=== PATIENT | male | born 1970 | race Caucasian/White ===

== ENCOUNTER 2019-12-21 22:01 | Inpatient (IN) | payer MEDICARE, MEDICAID ==
[~2019-12-21] VITALS: Ht 182.9 cm; Wt 96.4 kg
[~2019-12-21 22:01] MED LIST: BUSP5TAB20 PO; DIVA-78 PO; LORA-1000 PO; QUET300T2 PO; RANI150T7 PO
[2019-12-21] MEDS ORDERED: HYDR-3831 PO (23:04)
[2019-12-21] MEDS ORDERED: BENZ1TAB10 PO (23:04)
[2019-12-21] MEDS ORDERED: SERT50TA12 PO (23:04)
[2019-12-21] MEDS ORDERED: LORazepam 1 MG TABLET PO ONE (23:45)
[2019-12-22] MEDS ORDERED: ZOLPIDEM TARTRATE 10 MG TABLET PO PRN (01:30)
[2019-12-22 04:05] VITALS: BP 158/94
[2019-12-22] MEDS ORDERED: PNEUMOCOCCAL VACCINE POLYVALENT 0.5 ML VIAL [PPSV23] IM ONE (04:45)
[2019-12-22 08:00] VITALS: BP 140/87
[2019-12-22] MEDS: LORazepam 2 MG TABLET PO PRN (09:32)
[2019-12-22] MEDS: HALOPERIDOL 5 MG TABLET PO PRN (09:34)
[2019-12-22] MEDS ORDERED: ALBUTEROL SULFATE HFA 90 MCG/PUFF 8 GM INHALER IH PRN (12:45)
[2019-12-22 16:40] VITALS: BP 111/79
[2019-12-22] MEDS: BENZTROPINE MESYLATE 1 MG TABLET PO SCH (16:49)
[2019-12-22] MEDS: QUEtiapine FUMARATE 200 MG ER TABLET PO SCH (20:33)
[2019-12-22] MEDS: DIVALPROEX SODIUM 500 MG ER TABLET PO SCH (20:34)
[2019-12-23 06:38] LABS: BASOPHILS % (AUTO) 0.2 % (0.0-2.0); EOSINOPHILS % (AUTO) 2.3 % (1.0-6.0); HEMOGLOBIN 14.2 g/dL (13.5-17.5); LYMPHOCYTES # (AUTO) 1.2 K/uL (1.0-4.8); LYMPHOCYTES % (AUTO) 29.8 % (22.0-44.0); MEAN CORPUSCULAR HEMOGLOBIN 30.3 pg (26.0-34.0); MEAN CORPUSCULAR HGB CONC 33.8 G/dL (31.0-37.0); MEAN CORPUSCULAR VOLUME 90 fL (80-100); MONOCYTES # (AUTO) 0.6 K/uL (0.1-1.0); MONOCYTES % (AUTO) 14.6 % (2.0-9.0); NEUTROPHILS # (AUTO) 2.2 K/uL (1.8-7.7); NEUTROPHILS % (AUTO) 53.1 % (40.0-70.0); PLATELET COUNT (AUTO) 186 K/uL (150-450); RED BLOOD CELL COUNT(AUTO) 4.68 MIL/uL (4.50-5.90); RED CELL DISTRIBUTION WIDTH 13.1 % (11.5-14.5)
[2019-12-23 06:54] LABS: CHOL/HDL RATIO 2.5 (4.2-7.3)
[2019-12-23 08:14] VITALS: BP 145/60
[2019-12-23] MEDS: BENZTROPINE MESYLATE 1 MG TABLET PO SCH ×2 (09:12→16:43)
[2019-12-23] MEDS: RANITIDINE HCL 150 MG TABLET PO SCH (09:13)
[2019-12-23] MEDS: SERTRALINE HCL 50 MG TABLET PO SCH (09:13)
[2019-12-23 17:16] VITALS: BP 145/92
[2019-12-23] MEDS: DIVALPROEX SODIUM 500 MG ER TABLET PO SCH (20:24)
[2019-12-23] MEDS: QUEtiapine FUMARATE 200 MG ER TABLET PO SCH (20:25)
[2019-12-24] MEDS: RANITIDINE HCL 150 MG TABLET PO SCH (08:38)
[2019-12-24] MEDS: SERTRALINE HCL 50 MG TABLET PO SCH (08:38)
[2019-12-24] MEDS: BENZTROPINE MESYLATE 1 MG TABLET PO SCH ×2 (08:39→16:36)
[2019-12-24 09:02] VITALS: BP 159/79
[2019-12-24 16:48] VITALS: BP 159/85
[2019-12-24] MEDS: QUEtiapine FUMARATE 200 MG ER TABLET PO SCH (20:55)
[2019-12-24] MEDS: DIVALPROEX SODIUM 500 MG ER TABLET PO SCH (20:55)
[2019-12-25 08:57] VITALS: BP 157/97
[2019-12-25] MEDS: BENZTROPINE MESYLATE 1 MG TABLET PO SCH ×2 (09:49→16:06)
[2019-12-25] MEDS: RANITIDINE HCL 150 MG TABLET PO SCH (09:49)
[2019-12-25] MEDS: SERTRALINE HCL 50 MG TABLET PO SCH (09:49)
[2019-12-25 16:54] VITALS: BP 150/83
[2019-12-25] MEDS ORDERED: CloNIDine HCL 0.1 MG TABLET PO PRN (20:15)
[2019-12-25] MEDS: DIVALPROEX SODIUM 500 MG ER TABLET PO SCH (21:02)
[2019-12-25] MEDS: QUEtiapine FUMARATE 200 MG ER TABLET PO SCH (21:02)
[2019-12-26] MEDS: RANITIDINE HCL 150 MG TABLET PO SCH (09:11)
[2019-12-26] MEDS: BENZTROPINE MESYLATE 1 MG TABLET PO SCH ×2 (09:11→15:56)
[2019-12-26] MEDS: AmLODIPine BESYLATE 2.5 MG TABLET PO SCH (09:11)
[2019-12-26] MEDS: SERTRALINE HCL 50 MG TABLET PO SCH (09:12)
[2019-12-26 09:14] VITALS: BP 131/84
[2019-12-26 16:47] VITALS: BP 148/91
[2019-12-26] MEDS: DIVALPROEX SODIUM 500 MG ER TABLET PO SCH (20:18)
[2019-12-26] MEDS: QUEtiapine FUMARATE 200 MG ER TABLET PO SCH (20:18)
[2019-12-27] MEDS: BENZTROPINE MESYLATE 1 MG TABLET PO SCH ×2 (08:40→16:18)
[2019-12-27] MEDS: AmLODIPine BESYLATE 2.5 MG TABLET PO SCH (08:40)
[2019-12-27] MEDS: RANITIDINE HCL 150 MG TABLET PO SCH (08:40)
[2019-12-27] MEDS: SERTRALINE HCL 50 MG TABLET PO SCH (08:41)
[2019-12-27 08:59] VITALS: BP 143/97
[2019-12-27 19:59] VITALS: BP 133/73
[2019-12-27] MEDS: QUEtiapine FUMARATE 200 MG ER TABLET PO SCH (20:12)
[2019-12-27] MEDS: DIVALPROEX SODIUM 500 MG ER TABLET PO SCH (20:12)
[2019-12-28 08:00] VITALS: BP 155/96
[2019-12-28] MEDS: BENZTROPINE MESYLATE 1 MG TABLET PO SCH ×2 (09:28→16:01)
[2019-12-28] MEDS: RANITIDINE HCL 150 MG TABLET PO SCH (09:28)
[2019-12-28] MEDS: SERTRALINE HCL 50 MG TABLET PO SCH (09:28)
[2019-12-28] MEDS: AmLODIPine BESYLATE 5 MG TABLET PO SCH (09:28)
[2019-12-28 16:38] VITALS: BP 156/92
[2019-12-28] MEDS: QUEtiapine FUMARATE 200 MG ER TABLET PO SCH (20:17)
[2019-12-28] MEDS: DIVALPROEX SODIUM 500 MG ER TABLET PO SCH (20:18)
[2019-12-29] MEDS: RANITIDINE HCL 150 MG TABLET PO SCH (09:12)
[2019-12-29] MEDS: AmLODIPine BESYLATE 5 MG TABLET PO SCH (09:12)
[2019-12-29] MEDS: BENZTROPINE MESYLATE 1 MG TABLET PO SCH ×2 (09:12→16:13)
[2019-12-29] MEDS: SERTRALINE HCL 50 MG TABLET PO SCH (09:12)
[2019-12-29 09:30] VITALS: BP 129/72
[2019-12-29 16:31] VITALS: BP 141/80
[2019-12-29] MEDS: DIVALPROEX SODIUM 500 MG ER TABLET PO SCH (20:08)
[2019-12-29] MEDS: QUEtiapine FUMARATE 200 MG ER TABLET PO SCH (20:08)
[2019-12-30 08:00] VITALS: BP 132/74
[2019-12-30] MEDS: BENZTROPINE MESYLATE 1 MG TABLET PO SCH ×2 (08:05→16:10)
[2019-12-30] MEDS: SERTRALINE HCL 50 MG TABLET PO SCH (08:05)
[2019-12-30] MEDS: AmLODIPine BESYLATE 5 MG TABLET PO SCH (08:05)
[2019-12-30] MEDS: RANITIDINE HCL 150 MG TABLET PO SCH (08:06)
[2019-12-30 16:17] VITALS: BP 155/93
[2019-12-30] MEDS: LORazepam 2 MG TABLET PO PRN (16:17)
[2019-12-30] MEDS: DIVALPROEX SODIUM 500 MG ER TABLET PO SCH (20:01)
[2019-12-30] MEDS: QUEtiapine FUMARATE 200 MG ER TABLET PO SCH (20:01)
[2019-12-31 01:32] VITALS: BP 141/75
[2019-12-31] MEDS: HALOPERIDOL 5 MG TABLET PO PRN ×2 (02:56→09:30)
[2019-12-31] MEDS: LORazepam 2 MG TABLET PO PRN ×3 (02:56→20:01)
[2019-12-31] MEDS: SERTRALINE HCL 50 MG TABLET PO SCH (08:06)
[2019-12-31] MEDS: AmLODIPine BESYLATE 5 MG TABLET PO SCH (08:06)
[2019-12-31] MEDS: BENZTROPINE MESYLATE 1 MG TABLET PO SCH ×2 (08:06→16:38)
[2019-12-31] MEDS: RANITIDINE HCL 150 MG TABLET PO SCH (08:07)
[2019-12-31 08:48] VITALS: BP 133/70
[2019-12-31 13:27] LABS: GLUCOMETER DEV NAME(LOC) 3EX.; GLUCOSE,POINT OF CARE 99 MG/DL (70-110)
[2019-12-31 16:02] VITALS: BP 138/78
[2019-12-31] MEDS: DIVALPROEX SODIUM 500 MG ER TABLET PO SCH (20:02)
[2019-12-31] MEDS: QUEtiapine FUMARATE 200 MG ER TABLET PO SCH (20:03)
[2020-01-01 01:43] VITALS: BP 130/89
[2020-01-01 08:08] VITALS: BP 124/80
[2020-01-01] MEDS: RANITIDINE HCL 150 MG TABLET PO SCH (08:37)
[2020-01-01] MEDS: AmLODIPine BESYLATE 5 MG TABLET PO SCH (08:37)
[2020-01-01] MEDS: BENZTROPINE MESYLATE 1 MG TABLET PO SCH ×2 (08:37→16:21)
[2020-01-01] MEDS: SERTRALINE HCL 50 MG TABLET PO SCH (08:38)
[2020-01-01] MEDS ORDERED: BISACODYL 5 MG EC TABLET PO PRN (14:45)
[2020-01-01 15:37] LABS: APPEARANCE,URINE CLEAR (CLEAR); BILIRUBIN,URINE NEGATIVE (NEGATIVE); GLUCOSE, URINE (UA) NEGATIVE (NEGATIVE); KETONES,URINE NEGATIVE (NEGATIVE); LEUKOCYTE ESTERASE ,URINE NEGATIVE (NEGATIVE); NITRATE,URINE NEGATIVE (NEGATIVE); OCCULT BLOOD,URINE NEGATIVE (NEGATIVE); PROTEIN,URINE NEGATIVE (NEGATIVE)
[2020-01-01 15:41] LABS: BACTERIA,URINE None Seen /HPF (None Seen); RBC,URINE None Seen /HPF (0-2); WBC,URINE None Seen /HPF (0-5)
[2020-01-01 16:29] VITALS: BP 140/78
[2020-01-01] MEDS: QUEtiapine FUMARATE 200 MG ER TABLET PO SCH (20:20)
[2020-01-01] MEDS: DIVALPROEX SODIUM 500 MG ER TABLET PO SCH (20:21)
[2020-01-02 01:41] VITALS: BP 118/74
[2020-01-02] MEDS: LORazepam 2 MG TABLET PO PRN ×3 (06:11→21:48)
[2020-01-02] MEDS: AmLODIPine BESYLATE 5 MG TABLET PO SCH (09:20)
[2020-01-02] MEDS: BENZTROPINE MESYLATE 1 MG TABLET PO SCH ×2 (09:20→16:03)
[2020-01-02] MEDS: RANITIDINE HCL 150 MG TABLET PO SCH (09:20)
[2020-01-02] MEDS: SERTRALINE HCL 50 MG TABLET PO SCH (09:21)
[2020-01-02 09:36] LABS: BASOPHILS % (AUTO) 0.4 % (0.0-2.0); EOSINOPHILS % (AUTO) 2.6 % (1.0-6.0); HEMATOCRIT 42.8 % (41-53); HEMOGLOBIN 14.6 g/dL (13.5-17.5); LYMPHOCYTES # (AUTO) 1.4 K/uL (1.0-4.8); LYMPHOCYTES % (AUTO) 32.1 % (22.0-44.0); MEAN CORPUSCULAR HEMOGLOBIN 30.7 pg (26.0-34.0); MEAN CORPUSCULAR HGB CONC 34.2 G/dL (31.0-37.0); MEAN CORPUSCULAR VOLUME 90 fL (80-100); MONOCYTES # (AUTO) 0.7 K/uL (0.1-1.0); MONOCYTES % (AUTO) 15.4 % (2.0-9.0); NEUTROPHILS # (AUTO) 2.1 K/uL (1.8-7.7); NEUTROPHILS % (AUTO) 49.5 % (40.0-70.0); PLATELET COUNT (AUTO) 159 K/uL (150-450); RED BLOOD CELL COUNT(AUTO) 4.77 MIL/uL (4.50-5.90); RED CELL DISTRIBUTION WIDTH 12.7 % (11.5-14.5)
[2020-01-02 09:51] LABS: ALANINE AMINOTRANSFERASE 20 U/L (12-78); ALBUMIN 3.3 g/dL (3.4-5.0); ALKALINE PHOSPHATASE 83 U/L (46-116); ANION GAP 5 mmol/L (8-16); ASPARTATE AMINOTRANSFERASE 14 U/L (15-37); BILIRUBIN,TOTAL 0.2 mg/dL (0.1-1.0); CALCIUM, TOTAL 9.1 mg/dL (8.8-10.5); CARBON DIOXIDE 30 mmol/L (22-29); CHLORIDE 98 mmol/L (98-107); CREATININE 0.98 mg/dL (0.60-1.30); GLOMERULAR FILTR. RATE CALC > 60 mL/min (>60); GLUCOSE,RANDOM 81 mg/dL (70-110); POTASSIUM 4.5 mmol/L (3.5-5.1); SODIUM SERUM 133 mmol/L (136-145); TOTAL PROTEIN, SERUM 6.3 g/dL (6.4-8.2); UREA NITROGEN, BLOOD 15 mg/dL (7-18)
[2020-01-02 10:35] VITALS: BP 135/90
[2020-01-02] MEDS: HALOPERIDOL 5 MG TABLET PO PRN ×2 (17:07→21:48)
[2020-01-02 19:33] VITALS: BP 148/93
[2020-01-02] MEDS: DIVALPROEX SODIUM 500 MG ER TABLET PO SCH (20:21)
[2020-01-02] MEDS: QUEtiapine FUMARATE 200 MG ER TABLET PO SCH (20:21)
[2020-01-03] MEDS: BENZTROPINE MESYLATE 1 MG TABLET PO SCH (09:00)
[2020-01-03] MEDS: AmLODIPine BESYLATE 5 MG TABLET PO SCH (09:00)
[2020-01-03] MEDS: RANITIDINE HCL 150 MG TABLET PO SCH (09:01)
[2020-01-03] MEDS: SERTRALINE HCL 50 MG TABLET PO SCH (09:01)
[2020-01-03] MEDS ORDERED: QUET200T PO (10:27)
[2020-01-03] MEDS ORDERED: AMLO5TAB9 PO (10:29)
[2020-01-03 10:58] VITALS: BP 154/100
== END 2020-01-03 14:30 | disposition home or self-care (01) | DRG 885 ==
LOC: EDUNIT# 22:01 → EMS 22:02 → 3EX 12-22 01:30
PROVIDERS: ADMIT Psychiatry & Neurology Psychiatry; ATTEND Psychiatry & Neurology Psychiatry
DX: F25.0 Schizoaffective disorder, bipolar type (principal); F19.239 Other psychoactive substance dependence with withdrawal, unspecified; R45.851 Suicidal ideations; E87.1 Hypo-osmolality and hyponatremia; R45.87 Impulsiveness; F41.9 Anxiety disorder, unspecified; J45.909 Unspecified asthma, uncomplicated; K21.9 Gastro-esophageal reflux disease without esophagitis; F32.9 Major depressive disorder, single episode, unspecified; I10 Essential (primary) hypertension; K59.00 Constipation, unspecified; Z79.899 Other long term (current) drug therapy; Z87.891 Personal history of nicotine dependence; Z91.14 Patient's other noncompliance with medication regimen
CPT/HCPCS: G0378

== ENCOUNTER 2021-08-23 02:32 | Emergency (ER) | payer MEDICARE, OTHER ==
[~2021-08-23] VITALS: Ht 182.9 cm; Wt 90.9 kg
[~2021-08-23 02:32] MED LIST changes: +BUPR-49 PO; +BUSP15 PO; -BUSP5TAB20 PO; -DIVA-78 PO; +DIVA-80 PO; -LORA-1000 PO; +MELA5TAB40 PO; +NALT50TA PO; +OMEG-135 PO; -QUET300T2 PO; -RANI150T7 PO; +SERT-440 PO
[2021-08-23] MEDS ORDERED: HALOPERIDOL LACTATE 5 MG/ML VIAL IM ONE (03:00)
[2021-08-23] MEDS ORDERED: LORazepam 2 MG/ML VIAL IM ONE (03:00)
[2021-08-23] MEDS ORDERED: DiphenhydrAMINE HCL 50 MG/ML VIAL IM ONE (03:00)
[2021-08-23] MEDS ORDERED: LORazepam 2 MG TABLET PO ONE (03:00)
[2021-08-23 03:22] LABS: AMPHET/METH SCREEN,URINE POSITIVE (NEGATIVE); BARBITURATE SCREEN, URINE NEGATIVE (NEGATIVE); BENZODIAZEPINES SCREEN,URINE POSITIVE (NEGATIVE); CANNABINOID SCREEN,URINE POSITIVE (NEGATIVE); COCAINE SCREEN,URINE NEGATIVE (NEGATIVE); METHADONE SCREEN, URINE NEGATIVE (NEGATIVE); OPIATE SCREEN,URINE NEGATIVE (NEGATIVE); PHENCYCLIDINE SCREEN,URINE NEGATIVE (NEGATIVE)
[2021-08-23] MEDS ORDERED: ALBUTEROL SULFATE HFA 90 MCG/PUFF 8 GM INHALER IH ONE (03:30)
[2021-08-23 04:09] LABS: BASOPHILS % (AUTO) 1.4 % (0.0-2.0); EOSINOPHILS % (AUTO) 0 % (1.0-6.0); HEMATOCRIT 38.5 % (41-53); HEMOGLOBIN 13.4 g/dL (13.5-17.5); LYMPHOCYTES # (AUTO) 0.8 K/uL (1.0-4.8); LYMPHOCYTES % (AUTO) 14.5 % (22.0-44.0); MEAN CORPUSCULAR HEMOGLOBIN 32.1 pg (26.0-34.0); MEAN CORPUSCULAR HGB CONC 34.8 G/dL (31.0-37.0); MEAN CORPUSCULAR VOLUME 92 fL (80-100); MONOCYTES # (AUTO) 0.5 K/uL (0.1-1.0); MONOCYTES % (AUTO) 9.1 % (2.0-9.0); PLATELET COUNT (AUTO) 183 K/uL (150-450); RED BLOOD CELL COUNT(AUTO) 4.18 MIL/uL (4.50-5.90)
[2021-08-23 04:25] LABS: ALANINE AMINOTRANSFERASE 31 U/L (12-78); ALBUMIN 3.7 g/dL (3.4-5.0); ALKALINE PHOSPHATASE 78 U/L (46-116); ANION GAP 8 mmol/L (8-16); ASPARTATE AMINOTRANSFERASE 38 U/L (15-37); BILIRUBIN,TOTAL 0.5 mg/dL (0.1-1.0); CALCIUM, TOTAL 8.6 mg/dL (8.8-10.5); CARBON DIOXIDE 29 mmol/L (22-29); CHLORIDE 95 mmol/L (98-107); CREATININE 0.86 mg/dL (0.60-1.30); GLOMERULAR FILTR. RATE CALC > 60 mL/min (>60); GLUCOSE,RANDOM 101 mg/dL (70-110); SODIUM SERUM 132 mmol/L (136-145); TOTAL PROTEIN, SERUM 6.3 g/dL (6.4-8.2); UREA NITROGEN, BLOOD 6 mg/dL (7-18)
[2021-08-23 04:27] LABS: POTASSIUM 2.9 mmol/L (3.5-5.1)
[2021-08-23] MEDS ORDERED: POTASSIUM CHLORIDE 20 MEQ ER TABLET PO ONE (04:30)
[2021-08-23 04:39] LABS: COVID AG,FIA SOURCE NASOPHARYNGEAL
[2021-08-23 12:02] VITALS: BP 120/68
== END 2021-08-23 12:03 | disposition home or self-care (01) ==
LOC: EMS 02:34
DX: F15.959 Other stimulant use, unspecified with stimulant-induced psychotic disorder, unspecified (principal); F20.9 Schizophrenia, unspecified; K21.9 Gastro-esophageal reflux disease without esophagitis; J45.909 Unspecified asthma, uncomplicated; F17.210 Nicotine dependence, cigarettes, uncomplicated; F12.90 Cannabis use, unspecified, uncomplicated; Z20.822 Contact with and (suspected) exposure to COVID-19
CPT/HCPCS: 36415; 80053; 80307; 85025; 87426; 94640; 96372; 99285; G0480; J1200; J1630; J2060; J3535

== ENCOUNTER 2022-02-07 03:01 | Inpatient (IN) | payer MEDICARE, MEDICAID ==
[~2022-02-07] VITALS: Ht 182.9 cm; Wt 85.5 kg
[~2022-02-07 03:01] MED LIST changes: +OMEG-108 PO; -OMEG-135 PO
[2022-02-07] MEDS ORDERED: LORazepam 2 MG TABLET PO ONE ×2 (03:45→09:00)
[2022-02-07] MEDS ORDERED: BusPIRone HCL 15 MG TABLET PO ONE ×2 (03:45→14:15)
[2022-02-07 04:57] LABS: BASOPHILS % (AUTO) 0.3 % (0.0-2.0); EOSINOPHILS % (AUTO) 0.1 % (1.0-6.0); HEMATOCRIT 43.1 % (41-53); HEMOGLOBIN 15.2 g/dL (13.5-17.5); LYMPHOCYTES % (AUTO) 12.5 % (22.0-44.0); MEAN CORPUSCULAR HEMOGLOBIN 31.7 pg (26.0-34.0); MEAN CORPUSCULAR HGB CONC 35.2 G/dL (31.0-37.0); MEAN CORPUSCULAR VOLUME 90 fL (80-100); MONOCYTES # (AUTO) 0.8 K/uL (0.1-1.0); MONOCYTES % (AUTO) 10.2 % (2.0-9.0); NEUTROPHILS # (AUTO) 5.9 K/uL (1.8-7.7); NEUTROPHILS % (AUTO) 76.9 % (40.0-70.0); PLATELET COUNT (AUTO) 208 K/uL (150-450); RED BLOOD CELL COUNT(AUTO) 4.79 MIL/uL (4.50-5.90); RED CELL DISTRIBUTION WIDTH 12.8 % (11.5-14.5)
[2022-02-07 05:06] LABS: ANION GAP 10 mmol/L (8-16); CALCIUM, TOTAL 8.9 mg/dL (8.8-10.5); CARBON DIOXIDE 31 mmol/L (22-29); CHLORIDE 90 mmol/L (98-107); GLOMERULAR FILTR. RATE CALC > 60 mL/min (>60); GLUCOSE,RANDOM 103 mg/dL (70-110); POTASSIUM 3.2 mmol/L (3.5-5.1); SODIUM SERUM 131 mmol/L (136-145); UREA NITROGEN, BLOOD 8 mg/dL (7-18)
[2022-02-07 05:12] LABS: ALANINE AMINOTRANSFERASE 35 U/L (12-78); ALBUMIN 4.6 g/dL (3.4-5.0); ALKALINE PHOSPHATASE 99 U/L (46-116); ASPARTATE AMINOTRANSFERASE 32 U/L (15-37); BILIRUBIN,TOTAL 0.7 mg/dL (0.1-1.0); TOTAL PROTEIN, SERUM 7.7 g/dL (6.4-8.2)
[2022-02-07] MEDS ORDERED: POTASSIUM CHLORIDE 10% 40 MEQ/30 ML LIQUID UDCUP PO ONE (05:30)
[2022-02-07 06:59] LABS: COVID AG,FIA SOURCE NASOPHARYNGEAL
[2022-02-07] MEDS: HALOPERIDOL 5 MG TABLET PO ONE ×2 (09:14→09:18)
[2022-02-07] MEDS ORDERED: ZOLPIDEM TARTRATE 10 MG TABLET PO PRN (10:30)
[2022-02-07] MEDS: LORazepam 2 MG TABLET PO PRN (14:04)
[2022-02-07] MEDS ORDERED: LORazepam 2 MG/ML VIAL ONE (14:49)
[2022-02-07] MEDS ORDERED: DiphenhydrAMINE HCL 50 MG/ML VIAL ONE (14:50)
[2022-02-07] MEDS ORDERED: HALOPERIDOL LACTATE 5 MG/ML VIAL ONE (14:50)
[2022-02-07] MEDS ORDERED: LORazepam 2 MG/ML VIAL IM ONE (15:00)
[2022-02-07] MEDS ORDERED: HALOPERIDOL LACTATE 5 MG/ML VIAL IM ONE (15:00)
[2022-02-07] MEDS ORDERED: DiphenhydrAMINE HCL 50 MG/ML VIAL IM ONE (15:00)
[2022-02-08 00:30] VITALS: BP 146/86
[2022-02-08] MEDS: LORazepam 2 MG TABLET PO PRN ×2 (00:38→07:57)
[2022-02-08] MEDS ORDERED: PNEUMOCOCCAL VACCINE POLYVALENT 0.5 ML VIAL [PPSV23] IM. ONE (03:30)
[2022-02-08] MEDS: HALOPERIDOL 5 MG TABLET PO PRN (07:57)
[2022-02-08] MEDS: NICOTINE POLACRILEX 2 MG LOZENGE PO PRN ×2 (08:07→15:42)
[2022-02-08 08:24] VITALS: BP 146/84
[2022-02-08] MEDS ORDERED: DOCUSATE SODIUM 100 MG CAPSULE PO PRN (10:30)
[2022-02-08] MEDS ORDERED: NICOTINE 14 MG/24 HOUR PATCH TD PRN (10:30)
[2022-02-08] MEDS ORDERED: PETROLATUM,WHITE 28 GM JELLY TP PRN (10:30)
[2022-02-08] MEDS ORDERED: LOPERAMIDE HCL 2 MG CAPSULE PO PRN (10:30)
[2022-02-08] MEDS ORDERED: ONDANSETRON HCL 4 MG TABLET PO PRN (10:30)
[2022-02-08] MEDS ORDERED: GuaiFENesin/D-METHORPHAN [SUGAR-FREE] 200-20MG/10 ML SYRUP UDCUP PO PRN (10:30)
[2022-02-08] MEDS ORDERED: CloNIDine HCL 0.1 MG TABLET PO PRN (10:30)
[2022-02-08] MEDS ORDERED: ACETAMINOPHEN 325 MG TABLET PO PRN (10:30)
[2022-02-08] MEDS ORDERED: MAGNESIUM HYDROXIDE SUSPENSION 30 ML UDCUP PO PRN (10:30)
[2022-02-08] MEDS ORDERED: IBUPROFEN 400 MG TABLET PO PRN (10:30)
[2022-02-08] MEDS ORDERED: MAG HYDROX/AL HYDROX/SIMETH ES 30 ML SUSPENSION UDCUP PO PRN (10:30)
[2022-02-08] MEDS ORDERED: ALBUTEROL SULFATE HFA 90 MCG/PUFF 8 GM INHALER IH PRN (10:30)
[2022-02-08] MEDS: SERTRALINE HCL 100 MG TABLET PO SCH (13:15)
[2022-02-08] MEDS: BuPROPion HCL 150 MG SR TABLET PO SCH (13:15)
[2022-02-08 16:09] VITALS: BP 150/90
[2022-02-08] MEDS: BusPIRone HCL 15 MG TABLET PO SCH (16:45)
[2022-02-08] MEDS: MELATONIN 5 MG TABLET PO SCH (20:46)
[2022-02-08] MEDS: DIVALPROEX SODIUM 500 MG ER TABLET PO SCH (20:46)
[2022-02-09] MEDS: BuPROPion HCL 150 MG SR TABLET PO SCH (07:32)
[2022-02-09] MEDS: SERTRALINE HCL 100 MG TABLET PO SCH (07:32)
[2022-02-09] MEDS: BusPIRone HCL 15 MG TABLET PO SCH ×2 (07:32→16:59)
[2022-02-09] MEDS: LORazepam 2 MG TABLET PO PRN ×2 (07:33→16:19)
[2022-02-09] MEDS: HALOPERIDOL 5 MG TABLET PO PRN ×2 (07:33→16:19)
[2022-02-09 08:15] VITALS: BP 154/96
[2022-02-09 16:32] VITALS: BP 154/91
[2022-02-09] MEDS: DIVALPROEX SODIUM 500 MG ER TABLET PO SCH (20:20)
[2022-02-09] MEDS: MELATONIN 5 MG TABLET PO SCH (20:20)
[2022-02-10] MEDS: LORazepam 2 MG TABLET PO PRN (07:45)
[2022-02-10] MEDS: NICOTINE POLACRILEX 2 MG LOZENGE PO PRN (07:45)
[2022-02-10] MEDS: HALOPERIDOL 5 MG TABLET PO PRN (07:45)
[2022-02-10] MEDS: BusPIRone HCL 15 MG TABLET PO SCH (07:45)
[2022-02-10] MEDS: BuPROPion HCL 150 MG SR TABLET PO SCH (07:45)
[2022-02-10] MEDS: SERTRALINE HCL 100 MG TABLET PO SCH (07:45)
[2022-02-10 08:00] VITALS: BP 165/101
== END 2022-02-10 15:49 | disposition home or self-care (01) | DRG 885 ==
LOC: EMS 03:05 → 3EC 02-08 00:25
PROVIDERS: ADMIT Psychiatry & Neurology Child & Adolescent Psychiatry; ATTEND Psychiatry & Neurology Child & Adolescent Psychiatry
DX: F25.9 Schizoaffective disorder, unspecified (principal); E87.1 Hypo-osmolality and hyponatremia; E87.6 Hypokalemia; F15.10 Other stimulant abuse, uncomplicated; G40.909 Epilepsy, unspecified, not intractable, without status epilepticus; G47.00 Insomnia, unspecified; I10 Essential (primary) hypertension; J44.9 Chronic obstructive pulmonary disease, unspecified; K21.9 Gastro-esophageal reflux disease without esophagitis; F17.210 Nicotine dependence, cigarettes, uncomplicated; F12.90 Cannabis use, unspecified, uncomplicated; F41.9 Anxiety disorder, unspecified; Z20.822 Contact with and (suspected) exposure to COVID-19; Z79.899 Other long term (current) drug therapy
CPT/HCPCS: 80053; 85025; 99285; G0480; J1200; J1630; J2060; J3535; Q9967

== ENCOUNTER 2022-03-30 11:04 | Inpatient (IN) | payer MEDICARE, OTHER ==
[~2022-03-30] VITALS: Ht 175.3 cm; Wt 85.0 kg
[2022-03-30] MEDS ORDERED: MIDAZOLAM HCL 5 MG/ML VIAL ONE (11:22)
[2022-03-30] MEDS ORDERED: RINGERS SOLUTION,LACTATED 1,000 ML IV ONE (11:30)
[2022-03-30] MEDS ORDERED: MIDAZOLAM HCL 5 MG/ML VIAL IM ONE ×2 (11:30→16:00)
[2022-03-30] MEDS ORDERED: KETAMINE HCL 50 MG/ML 10 ML VIAL ONE (11:30)
[2022-03-30 12:17] LABS: BASOPHILS % (AUTO) 0.2 % (0.0-2.0); EOSINOPHILS % (AUTO) 0.2 % (1.0-6.0); HEMATOCRIT 37.1 % (41-53); HEMOGLOBIN 13.3 g/dL (13.5-17.5); LYMPHOCYTES # (AUTO) 0.6 K/uL (1.0-4.8); LYMPHOCYTES % (AUTO) 7.5 % (22.0-44.0); MEAN CORPUSCULAR HEMOGLOBIN 31.8 pg (26.0-34.0); MEAN CORPUSCULAR VOLUME 88 fL (80-100); MONOCYTES # (AUTO) 0.9 K/uL (0.1-1.0); MONOCYTES % (AUTO) 11.2 % (2.0-9.0); NEUTROPHILS # (AUTO) 6.4 K/uL (1.8-7.7); NEUTROPHILS % (AUTO) 80.9 % (40.0-70.0); PLATELET COUNT (AUTO) 187 K/uL (150-450); RED CELL DISTRIBUTION WIDTH 12.4 % (11.5-14.5)
[2022-03-30 12:52] LABS: ANION GAP 6 mmol/L (8-16); CALCIUM, TOTAL 8.5 mg/dL (8.8-10.5); CARBON DIOXIDE 29 mmol/L (22-29); CHLORIDE 83 mmol/L (98-107); CREATINE KINASE, TOTAL ONLY 848 U/L (39-308); CREATININE 0.94 mg/dL (0.60-1.30); GLOMERULAR FILTR. RATE CALC > 60 mL/min (>60); GLUCOSE,RANDOM 114 mg/dL (70-110); POTASSIUM 3.2 mmol/L (3.5-5.1); UREA NITROGEN, BLOOD 6 mg/dL (7-18)
[2022-03-30 12:53] LABS: SODIUM SERUM 118 mmol/L (136-145)
[2022-03-30 13:11] LABS: GLUCOMETER DEV NAME(LOC) ERT.5; GLUCOSE,POINT OF CARE 117 MG/DL (70-110)
[2022-03-30] MEDS ORDERED: LORazepam 2 MG/ML VIAL IVP ONE ×3 (13:15→16:00)
[2022-03-30] MEDS ORDERED: SODIUM CHLORIDE 0.9% 1,000 ML IV ONE (13:15)
[2022-03-30] MEDS ORDERED: ROCURONIUM BROMIDE 10 MG/ML 5 ML VIAL ONE (14:04)
[2022-03-30] MEDS ORDERED: PROPOFOL 1000 MG/ISO-OSM 100 ML ONE (14:05)
[2022-03-30] MEDS ORDERED: MORPHINE SULFATE 2 MG/ML SYRINGE IVP PRN (14:30)
[2022-03-30] MEDS ORDERED: ZOLPIDEM TARTRATE 5 MG TABLET PO PRN (14:30)
[2022-03-30] MEDS ORDERED: ONDANSETRON HCL 4 MG/2 ML VIAL IVP PRN (14:30)
[2022-03-30] MEDS ORDERED: MAGNESIUM HYDROXIDE SUSPENSION 30 ML UDCUP PO PRN (14:30)
[2022-03-30] MEDS ORDERED: HYDROCODONE/ACETAMINOPHEN 5-325 MG TABLET PO PRN (14:30)
[2022-03-30] MEDS ORDERED: SODIUM CHLORIDE 3% 500 ML IV ONE (14:30)
[2022-03-30] MEDS ORDERED: BISACODYL 10 MG RECTAL RECTAL SUPPOSITORY PR PRN (14:30)
[2022-03-30 15:19] LABS: ABG CARBOXYHEMOGLOBIN 0.7 % (0.0-1.5); ABG HCO3 26.6 mmol/L (22.0-26.0); ABG METHEMOGLOBIN 0.1 % (0.0-1.5); ABG OXYGEN CONTENT 18.5 mL/dL (15.0-23.0); ABG OXYGEN SATURATION 98.8 % (95.0-98.0); ABG PCO2 47 mmHg (35-45); ABG TOTAL HEMOGLOBIN 13.2 G/dL (12.0-18.0); PO2, ARTERIAL BG 174.5 mmHg (84.0-92.0); SOURCE, BLOOD GAS ARTERIAL; TEMPERATURE, FAHRENHEIT, BG 98.9 FAHREN (96.0-98.6)
[2022-03-30 15:20] LABS: O2 DEVICE,BLOOD GAS VENTILATOR (ROOM AIR); PEEP,BG 5 cm H2O; SITE, BLOOD GAS LFT RADIAL; SPONTANEOUS VT, BG 417 ml; VT, ABG 450 ml
[2022-03-30 15:23] LABS: APPEARANCE,URINE CLEAR (CLEAR); BILIRUBIN,URINE NEGATIVE (NEGATIVE); GLUCOSE, URINE (UA) NEGATIVE (NEGATIVE); KETONES,URINE NEGATIVE (NEGATIVE); LEUKOCYTE ESTERASE ,URINE NEGATIVE (NEGATIVE); NITRATE,URINE NEGATIVE (NEGATIVE); OCCULT BLOOD,URINE NEGATIVE (NEGATIVE); PH,URINE 7.5 (5.0-8.0); PROTEIN,URINE NEGATIVE (NEGATIVE); SPECIFIC GRAVITIY, URINE 1.004 (1.003-1.030); UROBILINOGEN,URINE <=1.0 mg/dL (<=1.0)
[2022-03-30 15:25] LABS: CREATININE,URINE RANDOM 6.4 mg/dL (30.0-125.0)
[2022-03-30 15:30] LABS: AMPHET/METH SCREEN,URINE POSITIVE (NEGATIVE); BARBITURATE SCREEN, URINE NEGATIVE (NEGATIVE); BENZODIAZEPINES SCREEN,URINE POSITIVE (NEGATIVE); CANNABINOID SCREEN,URINE NEGATIVE (NEGATIVE); COCAINE SCREEN,URINE NEGATIVE (NEGATIVE); METHADONE SCREEN, URINE NEGATIVE (NEGATIVE); OPIATE SCREEN,URINE NEGATIVE (NEGATIVE)
[2022-03-30 15:33] LABS: PHENCYCLIDINE SCREEN,URINE NEGATIVE (NEGATIVE)
[2022-03-30 15:43] LABS: CALCIUM, TOTAL 7.9 mg/dL (8.8-10.5); CHLORIDE 87 mmol/L (98-107); CREATINE KINASE, TOTAL ONLY 1040 U/L (39-308)
[2022-03-30 15:44] LABS: CARBON DIOXIDE 28 mmol/L (22-29); CREATININE 0.64 mg/dL (0.60-1.30); GLOMERULAR FILTR. RATE CALC > 60 mL/min (>60); GLUCOSE,RANDOM 114 mg/dL (70-110); UREA NITROGEN, BLOOD 6 mg/dL (7-18)
[2022-03-30 15:46] LABS: POTASSIUM 2.5 mmol/L (3.5-5.1)
[2022-03-30 15:47] LABS: ANION GAP 7 mmol/L (8-16); SODIUM SERUM 122 mmol/L (136-145)
[2022-03-30 15:55] LABS: BACTERIA,URINE None Seen /HPF (None Seen); RBC,URINE None Seen /HPF (0-2); SQUAMOUS EPITHELIAL CELL,UR Rare /LPF (None Seen); WBC,URINE 0-2 /HPF (0-5)
[2022-03-30] MEDS ORDERED: CALCIUM GLUCONATE 2,000 MG in DEXTROSE 5%-WATER 50 ML IV ONE (16:00)
[2022-03-30] MEDS ORDERED: POTASSIUM CHLORIDE 20 MEQ ER TABLET PO ONE (16:00)
[2022-03-30] MEDS ORDERED: PROPOFOL 1% 20 ML VIAL IVP ONE (16:00)
[2022-03-30] MEDS ORDERED: POTASSIUM CHL 10 MEQ/WATER 50 ML IV SCH (16:00)
[2022-03-30] MEDS ORDERED: ROCURONIUM BROMIDE 10 MG/ML 5 ML VIAL IVP ONE (16:00)
[2022-03-30] MEDS ORDERED: KETAMINE HCL 50 MG/ML 10 ML VIAL IM ONE (16:00)
[2022-03-30 17:03] LABS: COVID AG,FIA SOURCE NASAL SWAB
[2022-03-30] MEDS: PROPOFOL 1000 MG/ISO-OSM 100 ML IV PRN ×2 (18:10→22:34)
[2022-03-30] MEDS: HEPARIN SODIUM,PORCINE 5,000 UNITS/ML VIAL SQ SCH (18:11)
[2022-03-30] MEDS ORDERED: POTASSIUM CHL 10 MEQ/WATER 50 ML IV PRN (19:30)
[2022-03-30] MEDS ORDERED: METOCLOPRAMIDE HCL 5 MG/ML 2 ML VIAL IVP ONE (19:30)
[2022-03-30 20:00] VITALS: BP 117/77
[2022-03-30 20:12] LABS: POTASSIUM 2.7 mmol/L (3.5-5.1)
[2022-03-30] MEDS ORDERED: SODIUM CHLORIDE 0.9% 100 ML ONE (20:23)
[2022-03-30] MEDS: DOCUSATE SODIUM 100 MG CAPSULE PO SCH (20:37)
[2022-03-30] MEDS: POTASSIUM CHL 10 MEQ/WATER 50 ML IV PRN ×4 (20:37→22:33)
[2022-03-30] MEDS: VALPROIC ACID 250 MG/5 ML SOLUTION UDCUP GT SCH (21:01)
[2022-03-30] MEDS: OLANZapine 5 MG TABLET GT SCH (21:01)
[2022-03-30] MEDS ORDERED: WATER IV ONE (21:45)
[2022-03-30] MEDS ORDERED: DEXTROSE 5% IV ONE (21:45)
[2022-03-30] MEDS: DEXTROSE 5%-0.45% SODIUM CHL 1,000 ML IV PRN (23:11)
[2022-03-31] VITALS: BP 120/77
[2022-03-31] MEDS: HEPARIN SODIUM,PORCINE 5,000 UNITS/ML VIAL SQ SCH ×3 (00:45→17:27)
[2022-03-31] MEDS: POTASSIUM CHL 10 MEQ/WATER 50 ML IV PRN ×7 (01:21→20:45)
[2022-03-31] MEDS: POTASSIUM CHL 10 MEQ/WATER 50 ML IV SCH ×4 (01:37→04:50)
[2022-03-31] MEDS: PROPOFOL 1000 MG/ISO-OSM 100 ML IV PRN ×4 (02:24→17:30)
[2022-03-31 04:00] VITALS: BP 124/80
[2022-03-31 05:43] LABS: BASOPHILS % (AUTO) 0.2 % (0.0-2.0); EOSINOPHILS % (AUTO) 0.7 % (1.0-6.0); HEMATOCRIT 34.8 % (41-53); HEMOGLOBIN 12.6 g/dL (13.5-17.5); LYMPHOCYTES # (AUTO) 1.2 K/uL (1.0-4.8); LYMPHOCYTES % (AUTO) 16.8 % (22.0-44.0); MEAN CORPUSCULAR HEMOGLOBIN 32.2 pg (26.0-34.0); MEAN CORPUSCULAR HGB CONC 36.4 G/dL (31.0-37.0); MEAN CORPUSCULAR VOLUME 89 fL (80-100); MONOCYTES # (AUTO) 0.9 K/uL (0.1-1.0); MONOCYTES % (AUTO) 12.6 % (2.0-9.0); NEUTROPHILS # (AUTO) 5.2 K/uL (1.8-7.7); NEUTROPHILS % (AUTO) 69.7 % (40.0-70.0); PLATELET COUNT (AUTO) 158 K/uL (150-450); RED BLOOD CELL COUNT(AUTO) 3.92 MIL/uL (4.50-5.90); RED CELL DISTRIBUTION WIDTH 12.8 % (11.5-14.5)
[2022-03-31 05:56] LABS: ANION GAP 4 mmol/L (8-16); CALCIUM, TOTAL 8.4 mg/dL (8.8-10.5); CARBON DIOXIDE 28 mmol/L (22-29); CHLORIDE 94 mmol/L (98-107); CREATININE 0.72 mg/dL (0.60-1.30); GLOMERULAR FILTR. RATE CALC > 60 mL/min (>60); GLUCOSE,RANDOM 118 mg/dL (70-110); POTASSIUM 3.3 mmol/L (3.5-5.1); SODIUM SERUM 126 mmol/L (136-145); UREA NITROGEN, BLOOD 7 mg/dL (7-18)
[2022-03-31] MEDS: DEXTROSE 5%-WATER 250 ML IV PRN (06:17)
[2022-03-31 08:00] VITALS: BP 130/43
[2022-03-31] MEDS: DOCUSATE SODIUM 100 MG CAPSULE PO SCH ×2 (08:39→21:18)
[2022-03-31] MEDS: ETHYL ALCOHOL 62% ANTISEPTIC NASAL SANITIZER 0.6 ML AMPUL NASAL SCH ×2 (08:39→21:18)
[2022-03-31] MEDS: OLANZapine 5 MG TABLET GT SCH ×3 (08:39→21:18)
[2022-03-31] MEDS: VALPROIC ACID 250 MG/5 ML SOLUTION UDCUP GT SCH ×3 (08:39→21:17)
[2022-03-31] MEDS ORDERED: PANTOPRAZOLE SODIUM 40 MG DR TABLET PO SCH (09:00)
[2022-03-31] MEDS: PANTOPRAZOLE SODIUM 40 MG/VIAL IVP SCH (09:25)
[2022-03-31 09:29] LABS: ANION GAP 7 mmol/L (8-16); CALCIUM, TOTAL 8.2 mg/dL (8.8-10.5); CARBON DIOXIDE 27 mmol/L (22-29); CHLORIDE 95 mmol/L (98-107); CREATININE 0.75 mg/dL (0.60-1.30); GLOMERULAR FILTR. RATE CALC > 60 mL/min (>60); GLUCOSE,RANDOM 120 mg/dL (70-110); POTASSIUM 3.2 mmol/L (3.5-5.1); SODIUM SERUM 129 mmol/L (136-145); UREA NITROGEN, BLOOD 7 mg/dL (7-18)
[2022-03-31] MEDS: LORazepam 2 MG/ML VIAL IVP PRN (10:04)
[2022-03-31] MEDS: HALOPERIDOL LACTATE 5 MG/ML VIAL IM PRN (10:24)
[2022-03-31 12:00] VITALS: BP 112/91
[2022-03-31] MEDS ORDERED: MIDAZOLAM HCL 100 MG in SODIUM CHLORIDE 0.9% 180 ML IV PRN (12:15)
[2022-03-31] MEDS: FentaNYL CIT 1000MCG/0.9% NACL 100 ML IV PRN (12:18)
[2022-03-31 12:20] LABS: ANION GAP 4 mmol/L (8-16); CARBON DIOXIDE 28 mmol/L (22-29); CHLORIDE 95 mmol/L (98-107); CREATININE 0.75 mg/dL (0.60-1.30); GLOMERULAR FILTR. RATE CALC > 60 mL/min (>60); GLUCOSE,RANDOM 211 mg/dL (70-110); POTASSIUM 3.3 mmol/L (3.5-5.1); SODIUM SERUM 127 mmol/L (136-145); UREA NITROGEN, BLOOD 6 mg/dL (7-18)
[2022-03-31] MEDS ORDERED: SODIUM CHLORIDE 0.9% 250 ML IV ONE (12:25)
[2022-03-31] MEDS ORDERED: DEXTROSE 5%-0.9% SODIUM CHL 1,000 ML IV ONE (12:45)
[2022-03-31] MEDS: CefTRIAXone SODIUM 2 GM in DEXTROSE 5%-WATER 50 ML IV SCH (15:44)
[2022-03-31 16:00] VITALS: BP 103/61
[2022-03-31 16:56] LABS: ANION GAP 5 mmol/L (8-16); CALCIUM, TOTAL 8.2 mg/dL (8.8-10.5); CARBON DIOXIDE 27 mmol/L (22-29); CHLORIDE 97 mmol/L (98-107); GLOMERULAR FILTR. RATE CALC > 60 mL/min (>60); GLUCOSE,RANDOM 154 mg/dL (70-110); POTASSIUM 3.4 mmol/L (3.5-5.1); SODIUM SERUM 129 mmol/L (136-145); UREA NITROGEN, BLOOD 6 mg/dL (7-18)
[2022-03-31] MEDS: DOXYCYCLINE HYCLATE 100 MG in DEXTROSE 5%-WATER 100 ML IV SCH (17:27)
[2022-03-31] MEDS: DEXTROSE 5%-0.45% SODIUM CHL 1,000 ML IV PRN (17:27)
[2022-03-31 20:00] VITALS: BP 117/70
[2022-03-31 21:15] LABS: ANION GAP 6 mmol/L (8-16); CALCIUM, TOTAL 8.1 mg/dL (8.8-10.5); CARBON DIOXIDE 27 mmol/L (22-29); CHLORIDE 95 mmol/L (98-107); CREATININE 0.78 mg/dL (0.60-1.30); GLOMERULAR FILTR. RATE CALC > 60 mL/min (>60); GLUCOSE,RANDOM 120 mg/dL (70-110); POTASSIUM 3.7 mmol/L (3.5-5.1); SODIUM SERUM 128 mmol/L (136-145); UREA NITROGEN, BLOOD 7 mg/dL (7-18)
[2022-04-01] VITALS: BP 90/56
[2022-04-01] MEDS: HEPARIN SODIUM,PORCINE 5,000 UNITS/ML VIAL SQ SCH ×4 (00:31→23:42)
[2022-04-01 01:31] LABS: ANION GAP 3 mmol/L (8-16); CALCIUM, TOTAL 8.1 mg/dL (8.8-10.5); CARBON DIOXIDE 28 mmol/L (22-29); CHLORIDE 97 mmol/L (98-107); CREATININE 0.87 mg/dL (0.60-1.30); GLOMERULAR FILTR. RATE CALC > 60 mL/min (>60); GLUCOSE,RANDOM 116 mg/dL (70-110); POTASSIUM 3.6 mmol/L (3.5-5.1); SODIUM SERUM 128 mmol/L (136-145); UREA NITROGEN, BLOOD 8 mg/dL (7-18)
[2022-04-01] MEDS: PROPOFOL 1000 MG/ISO-OSM 100 ML IV PRN ×5 (02:13→22:44)
[2022-04-01 04:00] VITALS: BP 110/63
[2022-04-01] MEDS: DOXYCYCLINE HYCLATE 100 MG in DEXTROSE 5%-WATER 100 ML IV SCH ×2 (04:09→16:18)
[2022-04-01] MEDS: FentaNYL CIT 1000MCG/0.9% NACL 100 ML IV PRN ×2 (04:41→17:33)
[2022-04-01] MEDS: POTASSIUM CHL 10 MEQ/WATER 50 ML IV PRN ×3 (05:17→06:41)
[2022-04-01 05:39] LABS: BASOPHILS % (AUTO) 0.1 % (0.0-2.0); EOSINOPHILS % (AUTO) 0.2 % (1.0-6.0); LYMPHOCYTES # (AUTO) 0.5 K/uL (1.0-4.8); LYMPHOCYTES % (AUTO) 4.3 % (22.0-44.0); MEAN CORPUSCULAR HEMOGLOBIN 31.1 pg (26.0-34.0); MEAN CORPUSCULAR HGB CONC 34.3 G/dL (31.0-37.0); MEAN CORPUSCULAR VOLUME 91 fL (80-100); MONOCYTES # (AUTO) 0.7 K/uL (0.1-1.0); MONOCYTES % (AUTO) 5.8 % (2.0-9.0); NEUTROPHILS # (AUTO) 10.5 K/uL (1.8-7.7); PLATELET COUNT (AUTO) 152 K/uL (150-450); RED CELL DISTRIBUTION WIDTH 13.2 % (11.5-14.5)
[2022-04-01 05:41] LABS: NEUTROPHILS % (AUTO) 89.6 % (40.0-70.0)
[2022-04-01 05:50] LABS: ANION GAP 7 mmol/L (8-16); CALCIUM, TOTAL 7.9 mg/dL (8.8-10.5); CARBON DIOXIDE 26 mmol/L (22-29); CHLORIDE 98 mmol/L (98-107); CREATININE 1.01 mg/dL (0.60-1.30); GLOMERULAR FILTR. RATE CALC > 60 mL/min (>60); GLUCOSE,RANDOM 112 mg/dL (70-110); POTASSIUM 3.5 mmol/L (3.5-5.1); SODIUM SERUM 131 mmol/L (136-145); UREA NITROGEN, BLOOD 9 mg/dL (7-18)
[2022-04-01] MEDS: DEXTROSE 5%-WATER 250 ML IV PRN (06:14)
[2022-04-01] MEDS: VALPROIC ACID 250 MG/5 ML SOLUTION UDCUP GT SCH ×3 (07:59→20:18)
[2022-04-01] MEDS: OLANZapine 5 MG TABLET GT SCH ×3 (07:59→20:18)
[2022-04-01] MEDS: PANTOPRAZOLE SODIUM 40 MG/VIAL IVP SCH (07:59)
[2022-04-01 08:00] VITALS: BP 93/52
[2022-04-01] MEDS: ETHYL ALCOHOL 62% ANTISEPTIC NASAL SANITIZER 0.6 ML AMPUL NASAL SCH ×2 (08:00→20:18)
[2022-04-01] MEDS: DOCUSATE SODIUM 100 MG CAPSULE PO SCH ×2 (08:00→20:18)
[2022-04-01 09:21] LABS: ANION GAP 5 mmol/L (8-16); CALCIUM, TOTAL 8.3 mg/dL (8.8-10.5); CARBON DIOXIDE 26 mmol/L (22-29); CHLORIDE 97 mmol/L (98-107); CREATININE 0.98 mg/dL (0.60-1.30); GLOMERULAR FILTR. RATE CALC > 60 mL/min (>60); GLUCOSE,RANDOM 103 mg/dL (70-110); SODIUM SERUM 128 mmol/L (136-145); UREA NITROGEN, BLOOD 10 mg/dL (7-18)
[2022-04-01] MEDS ORDERED: DEXTROSE 5%-0.9% SODIUM CHL 1,000 ML IV ONE (09:58)
[2022-04-01] MEDS: POTASSIUM CHL 20 MEQ/D5-NS 1,000 ML IV SCH (11:19)
[2022-04-01 12:00] VITALS: BP 99/59
[2022-04-01] MEDS: CefTRIAXone SODIUM 2 GM in DEXTROSE 5%-WATER 50 ML IV SCH (14:18)
[2022-04-01 16:00] VITALS: BP 105/57
[2022-04-01 20:00] VITALS: BP 104/52
[2022-04-02] VITALS: BP 111/58
[2022-04-02] MEDS: POTASSIUM CHL 20 MEQ/D5-NS 1,000 ML IV SCH (00:18)
[2022-04-02] MEDS: PROPOFOL 1000 MG/ISO-OSM 100 ML IV PRN ×3 (03:24→13:47)
[2022-04-02] MEDS: DOXYCYCLINE HYCLATE 100 MG in DEXTROSE 5%-WATER 100 ML IV SCH ×2 (03:26→16:13)
[2022-04-02] MEDS ORDERED: SODIUM CHLORIDE 0.9% 250 ML IV ONE (03:28)
[2022-04-02 04:00] VITALS: BP 121/63
[2022-04-02] MEDS: FentaNYL CIT 1000MCG/0.9% NACL 100 ML IV PRN ×2 (06:06→20:25)
[2022-04-02 06:11] LABS: BASOPHILS % (AUTO) 0.3 % (0.0-2.0); CALCIUM, TOTAL 8.5 mg/dL (8.8-10.5); CREATININE 1.29 mg/dL (0.60-1.30); EOSINOPHILS % (AUTO) 2.5 % (1.0-6.0); HEMATOCRIT 35.1 % (41-53); HEMOGLOBIN 12.1 g/dL (13.5-17.5); LYMPHOCYTES # (AUTO) 0.7 K/uL (1.0-4.8); LYMPHOCYTES % (AUTO) 6.8 % (22.0-44.0); MEAN CORPUSCULAR HEMOGLOBIN 31.6 pg (26.0-34.0); MEAN CORPUSCULAR HGB CONC 34.3 G/dL (31.0-37.0); MEAN CORPUSCULAR VOLUME 92 fL (80-100); MONOCYTES # (AUTO) 0.7 K/uL (0.1-1.0); MONOCYTES % (AUTO) 6.9 % (2.0-9.0); NEUTROPHILS # (AUTO) 8.4 K/uL (1.8-7.7); NEUTROPHILS % (AUTO) 83.5 % (40.0-70.0); PLATELET COUNT (AUTO) 138 K/uL (150-450); POTASSIUM 3.4 mmol/L (3.5-5.1); RED BLOOD CELL COUNT(AUTO) 3.82 MIL/uL (4.50-5.90); RED CELL DISTRIBUTION WIDTH 13.2 % (11.5-14.5)
[2022-04-02] MEDS: POTASSIUM CHL 10 MEQ/WATER 50 ML IV PRN ×3 (06:28→09:08)
[2022-04-02] MEDS ORDERED: DEXMEDETOMIDINE HCL 200 MCG in SODIUM CHLORIDE 0.9% 48 ML IV PRN (07:00)
[2022-04-02] MEDS: DEXMEDETOMIDINE HCL 400 MCG in SODIUM CHLORIDE 0.9% 96 ML IV PRN (07:53)
[2022-04-02] MEDS: HEPARIN SODIUM,PORCINE 5,000 UNITS/ML VIAL SQ SCH ×2 (07:54→15:04)
[2022-04-02] MEDS: PANTOPRAZOLE SODIUM 40 MG/VIAL IVP SCH (07:54)
[2022-04-02] MEDS: ETHYL ALCOHOL 62% ANTISEPTIC NASAL SANITIZER 0.6 ML AMPUL NASAL SCH ×2 (07:55→20:36)
[2022-04-02 08:00] VITALS: BP 119/62
[2022-04-02] MEDS: VALPROIC ACID 250 MG/5 ML SOLUTION UDCUP GT SCH ×3 (08:11→20:43)
[2022-04-02] MEDS: OLANZapine 5 MG TABLET GT SCH ×2 (08:11→15:04)
[2022-04-02] MEDS: DOCUSATE SODIUM 100 MG CAPSULE PO SCH ×2 (08:11→20:36)
[2022-04-02] MEDS: HALOPERIDOL LACTATE 5 MG/ML VIAL IM PRN (10:31)
[2022-04-02 12:00] VITALS: BP 117/65
[2022-04-02] MEDS: CefTRIAXone SODIUM 2 GM in DEXTROSE 5%-WATER 50 ML IV SCH (15:03)
[2022-04-02 16:00] VITALS: BP 120/63
[2022-04-02 20:00] VITALS: BP 110/63
[2022-04-02] MEDS ORDERED: OLANZapine 5 MG TABLET GT SCH (21:00)
[2022-04-03] VITALS: BP 144/66
[2022-04-03] MEDS: HEPARIN SODIUM,PORCINE 5,000 UNITS/ML VIAL SQ SCH ×3 (00:05→16:52)
[2022-04-03] MEDS: PROPOFOL 1000 MG/ISO-OSM 100 ML IV PRN ×3 (01:46→16:15)
[2022-04-03 04:00] VITALS: BP 106/42
[2022-04-03] MEDS: DOXYCYCLINE HYCLATE 100 MG in DEXTROSE 5%-WATER 100 ML IV SCH ×2 (04:09→16:52)
[2022-04-03 05:58] LABS: BASOPHILS % (AUTO) 0.1 % (0.0-2.0); EOSINOPHILS % (AUTO) 2.1 % (1.0-6.0); HEMATOCRIT 34.8 % (41-53); HEMOGLOBIN 12.1 g/dL (13.5-17.5); LYMPHOCYTES # (AUTO) 0.6 K/uL (1.0-4.8); LYMPHOCYTES % (AUTO) 9.9 % (22.0-44.0); MEAN CORPUSCULAR HEMOGLOBIN 31.6 pg (26.0-34.0); MEAN CORPUSCULAR HGB CONC 34.6 G/dL (31.0-37.0); MEAN CORPUSCULAR VOLUME 91 fL (80-100); MONOCYTES # (AUTO) 0.6 K/uL (0.1-1.0); MONOCYTES % (AUTO) 10.2 % (2.0-9.0); NEUTROPHILS # (AUTO) 4.7 K/uL (1.8-7.7); NEUTROPHILS % (AUTO) 77.7 % (40.0-70.0); PLATELET COUNT (AUTO) 136 K/uL (150-450); RED BLOOD CELL COUNT(AUTO) 3.82 MIL/uL (4.50-5.90); RED CELL DISTRIBUTION WIDTH 13.1 % (11.5-14.5)
[2022-04-03 06:12] LABS: ANION GAP 5 mmol/L (8-16); CALCIUM, TOTAL 9.1 mg/dL (8.8-10.5); CARBON DIOXIDE 27 mmol/L (22-29); CHLORIDE 102 mmol/L (98-107); CREATININE 0.87 mg/dL (0.60-1.30); GLUCOSE,RANDOM 92 mg/dL (70-110); SODIUM SERUM 134 mmol/L (136-145); UREA NITROGEN, BLOOD 14 mg/dL (7-18); VALPROIC ACID 52 mcg/mL (50-100)
[2022-04-03 06:14] LABS: GLOMERULAR FILTR. RATE CALC > 60 mL/min (>60)
[2022-04-03] MEDS: FentaNYL CIT 1000MCG/0.9% NACL 100 ML IV PRN (06:41)
[2022-04-03 07:17] LABS: GLUCOSE,POINT OF CARE 92 MG/DL (70-110)
[2022-04-03 07:17] LABS: GLUCOSE,POINT OF CARE 87 MG/DL (70-110)
[2022-04-03 08:00] VITALS: BP 107/52
[2022-04-03] MEDS ORDERED: QUEtiapine FUMARATE 25 MG TABLET PO SCH (09:30)
[2022-04-03] MEDS: VALPROIC ACID 250 MG/5 ML SOLUTION UDCUP GT SCH ×3 (09:39→21:10)
[2022-04-03] MEDS: PANTOPRAZOLE SODIUM 40 MG/VIAL IVP SCH (09:40)
[2022-04-03] MEDS: DOCUSATE SODIUM 100 MG CAPSULE PO SCH ×2 (09:40→21:10)
[2022-04-03] MEDS: ETHYL ALCOHOL 62% ANTISEPTIC NASAL SANITIZER 0.6 ML AMPUL NASAL SCH ×2 (09:40→21:10)
[2022-04-03] MEDS: OLANZapine 7.5 MG TABLET GT SCH ×3 (09:40→21:10)
[2022-04-03] MEDS: DEXMEDETOMIDINE HCL 400 MCG in SODIUM CHLORIDE 0.9% 96 ML IV PRN ×2 (10:08→16:15)
[2022-04-03 12:00] VITALS: BP 107/48
[2022-04-03] MEDS: LORazepam 2 MG/ML VIAL IVP PRN (12:50)
[2022-04-03] MEDS: HALOPERIDOL LACTATE 5 MG/ML VIAL IM PRN (12:52)
[2022-04-03] MEDS: CefTRIAXone SODIUM 2 GM in DEXTROSE 5%-WATER 50 ML IV SCH (15:35)
[2022-04-03 16:00] VITALS: BP 152/86
[2022-04-03 20:00] VITALS: BP 124/72
[2022-04-04] VITALS: BP 113/59
[2022-04-04] MEDS: HEPARIN SODIUM,PORCINE 5,000 UNITS/ML VIAL SQ SCH ×3 (00:29→16:13)
[2022-04-04] MEDS: PROPOFOL 1000 MG/ISO-OSM 100 ML IV PRN ×3 (00:30→10:14)
[2022-04-04] MEDS: FentaNYL CIT 1000MCG/0.9% NACL 100 ML IV PRN (00:31)
[2022-04-04 04:00] VITALS: BP 125/71
[2022-04-04] MEDS: DOXYCYCLINE HYCLATE 100 MG in DEXTROSE 5%-WATER 100 ML IV SCH ×2 (04:27→16:13)
[2022-04-04] MEDS: ETHYL ALCOHOL 62% ANTISEPTIC NASAL SANITIZER 0.6 ML AMPUL NASAL SCH ×2 (07:48→21:41)
[2022-04-04] MEDS: PANTOPRAZOLE SODIUM 40 MG/VIAL IVP SCH (07:48)
[2022-04-04] MEDS: VALPROIC ACID 250 MG/5 ML SOLUTION UDCUP GT SCH ×3 (07:48→21:41)
[2022-04-04] MEDS: DOCUSATE SODIUM 100 MG CAPSULE PO SCH ×2 (07:49→21:41)
[2022-04-04] MEDS: OLANZapine 7.5 MG TABLET GT SCH ×3 (07:49→21:41)
[2022-04-04 08:00] VITALS: BP 133/76
[2022-04-04] MEDS: LORazepam 2 MG/ML VIAL IVP PRN ×2 (11:47→21:41)
[2022-04-04] MEDS: HALOPERIDOL LACTATE 5 MG/ML VIAL IM PRN (11:48)
[2022-04-04 12:00] VITALS: BP 140/77
[2022-04-04 12:12] LABS: BASOPHILS % (AUTO) 0.4 % (0.0-2.0); EOSINOPHILS % (AUTO) 3.5 % (1.0-6.0); HEMOGLOBIN 12.3 g/dL (13.5-17.5); LYMPHOCYTES # (AUTO) 0.8 K/uL (1.0-4.8); LYMPHOCYTES % (AUTO) 17.3 % (22.0-44.0); MEAN CORPUSCULAR HEMOGLOBIN 31.8 pg (26.0-34.0); MEAN CORPUSCULAR HGB CONC 35.1 G/dL (31.0-37.0); MEAN CORPUSCULAR VOLUME 91 fL (80-100); MONOCYTES # (AUTO) 0.6 K/uL (0.1-1.0); MONOCYTES % (AUTO) 12.8 % (2.0-9.0); PLATELET COUNT (AUTO) 144 K/uL (150-450); RED BLOOD CELL COUNT(AUTO) 3.86 MIL/uL (4.50-5.90)
[2022-04-04 12:19] LABS: ANION GAP 6 mmol/L (8-16); CALCIUM, TOTAL 8.7 mg/dL (8.8-10.5); CARBON DIOXIDE 28 mmol/L (22-29); CHLORIDE 102 mmol/L (98-107); GLUCOSE,RANDOM 92 mg/dL (70-110); POTASSIUM 3.9 mmol/L (3.5-5.1); SODIUM SERUM 136 mmol/L (136-145); UREA NITROGEN, BLOOD 18 mg/dL (7-18)
[2022-04-04 12:20] LABS: GLOMERULAR FILTR. RATE CALC > 60 mL/min (>60)
[2022-04-04] MEDS: CefTRIAXone SODIUM 2 GM in DEXTROSE 5%-WATER 50 ML IV SCH (15:06)
[2022-04-04 15:40] LABS: ABG A-A DIFF O2 129.3 mmHg (10-20.0); ABG BASE EXCESS -1.2 mmol/L (-2.0-3.0); ABG CARBOXYHEMOGLOBIN 0.9 % (0.0-1.5); ABG HCO3 23.6 mmol/L (22.0-26.0); ABG METHEMOGLOBIN 0.3 % (0.0-1.5); ABG OXYGEN CONTENT 16.1 mL/dL (15.0-23.0); ABG OXYGEN SATURATION 95.7 % (95.0-98.0); ABG OXYHEMOGLOBIN 94.6 % (94.0-100.0); ABG PCO2 40 mmHg (35-45); ABG PH 7.394 (7.35-7.450); ABG TOTAL HEMOGLOBIN 12.1 G/dL (12.0-18.0); CPAP, BG 5 cm H2O; O2 DEVICE,BLOOD GAS VENTILATOR (ROOM AIR); PO2, ARTERIAL BG 74.3 mmHg (84.0-92.0); PRESSURE SUPPORT, BG 8 cm H2O; SITE, BLOOD GAS LFT RADIAL; SOURCE, BLOOD GAS ARTERIAL; SPONTANEOUS VT, BG 446 ml; TEMPERATURE, FAHRENHEIT, BG 98.5 FAHREN (96.0-98.6); VENT MODE, BG CPAP (ROOM AIR)
[2022-04-04 16:00] VITALS: BP 135/74
[2022-04-04 20:00] VITALS: BP 136/77
[2022-04-05] VITALS: BP 188/87
[2022-04-05] MEDS: HEPARIN SODIUM,PORCINE 5,000 UNITS/ML VIAL SQ SCH ×4 (00:43→23:47)
[2022-04-05] MEDS: LORazepam 2 MG/ML VIAL IVP PRN (03:30)
[2022-04-05 04:00] VITALS: BP 102/57
[2022-04-05] MEDS: DOXYCYCLINE HYCLATE 100 MG in DEXTROSE 5%-WATER 100 ML IV SCH ×2 (04:39→17:42)
[2022-04-05 08:00] VITALS: BP 110/55
[2022-04-05] MEDS: VALPROIC ACID 250 MG/5 ML SOLUTION UDCUP GT SCH ×3 (09:52→20:41)
[2022-04-05] MEDS: PANTOPRAZOLE SODIUM 40 MG/VIAL IVP SCH (09:53)
[2022-04-05] MEDS: ETHYL ALCOHOL 62% ANTISEPTIC NASAL SANITIZER 0.6 ML AMPUL NASAL SCH ×2 (09:53→20:41)
[2022-04-05] MEDS: OLANZapine 7.5 MG TABLET GT SCH ×3 (09:53→20:41)
[2022-04-05] MEDS: DOCUSATE SODIUM 100 MG CAPSULE PO SCH ×2 (09:53→20:41)
[2022-04-05 12:00] VITALS: BP 121/71
[2022-04-05 16:00] VITALS: BP 122/66
[2022-04-05] MEDS: CefTRIAXone SODIUM 2 GM in DEXTROSE 5%-WATER 50 ML IV SCH (17:42)
[2022-04-05 19:30] VITALS: BP 126/84
[2022-04-06 00:36] VITALS: BP 118/71
[2022-04-06 03:35] VITALS: BP 124/84
[2022-04-06] MEDS: DOXYCYCLINE HYCLATE 100 MG in DEXTROSE 5%-WATER 100 ML IV SCH ×2 (03:44→15:58)
[2022-04-06 07:43] VITALS: BP 128/86
[2022-04-06] MEDS: VALPROIC ACID 250 MG/5 ML SOLUTION UDCUP GT SCH ×3 (08:30→21:00)
[2022-04-06] MEDS: OLANZapine 7.5 MG TABLET GT SCH ×3 (08:30→21:00)
[2022-04-06] MEDS: ACETAMINOPHEN 325 MG TABLET PO PRN ×2 (08:30→15:59)
[2022-04-06] MEDS: HEPARIN SODIUM,PORCINE 5,000 UNITS/ML VIAL SQ SCH ×2 (08:30→15:49)
[2022-04-06] MEDS: ETHYL ALCOHOL 62% ANTISEPTIC NASAL SANITIZER 0.6 ML AMPUL NASAL SCH ×2 (08:31→21:00)
[2022-04-06] MEDS: PANTOPRAZOLE SODIUM 40 MG/VIAL IVP SCH (08:31)
[2022-04-06] MEDS: DOCUSATE SODIUM 100 MG CAPSULE PO SCH ×2 (08:31→21:00)
[2022-04-06 10:03] LABS: BASOPHILS % (AUTO) 0.7 % (0.0-2.0); EOSINOPHILS % (AUTO) 1.2 % (1.0-6.0); HEMATOCRIT 35.8 % (41-53); HEMOGLOBIN 12.7 g/dL (13.5-17.5); LYMPHOCYTES # (AUTO) 0.5 K/uL (1.0-4.8); MEAN CORPUSCULAR HEMOGLOBIN 31.8 pg (26.0-34.0); MEAN CORPUSCULAR HGB CONC 35.5 G/dL (31.0-37.0); MEAN CORPUSCULAR VOLUME 90 fL (80-100); MONOCYTES # (AUTO) 0.9 K/uL (0.1-1.0); MONOCYTES % (AUTO) 16.1 % (2.0-9.0); NEUTROPHILS # (AUTO) 3.9 K/uL (1.8-7.7); PLATELET COUNT (AUTO) 154 K/uL (150-450); RED BLOOD CELL COUNT(AUTO) 3.99 MIL/uL (4.50-5.90); RED CELL DISTRIBUTION WIDTH 12.9 % (11.5-14.5)
[2022-04-06 10:14] LABS: ANION GAP 8 mmol/L (8-16); CALCIUM, TOTAL 8.9 mg/dL (8.8-10.5); CARBON DIOXIDE 29 mmol/L (22-29); CHLORIDE 99 mmol/L (98-107); CREATININE 0.73 mg/dL (0.60-1.30); GLUCOSE,RANDOM 175 mg/dL (70-110); POTASSIUM 3.8 mmol/L (3.5-5.1); SODIUM SERUM 136 mmol/L (136-145); UREA NITROGEN, BLOOD 17 mg/dL (7-18)
[2022-04-06 10:15] LABS: GLOMERULAR FILTR. RATE CALC > 60 mL/min (>60)
[2022-04-06 11:10] VITALS: BP 133/96
[2022-04-06 15:40] VITALS: BP 134/86
[2022-04-06 19:43] VITALS: BP 134/74
[2022-04-07] MEDS: DOXYCYCLINE HYCLATE 100 MG in DEXTROSE 5%-WATER 100 ML IV SCH (05:41)
[2022-04-07 05:43] VITALS: BP 139/78
[2022-04-07] MEDS ORDERED: SODIUM CHLORIDE 0.9% 500 ML IV ONE (05:43)
[2022-04-07 08:06] VITALS: BP 127/72
[2022-04-07] MEDS: OLANZapine 7.5 MG TABLET GT SCH ×3 (09:08→20:08)
[2022-04-07] MEDS: HEPARIN SODIUM,PORCINE 5,000 UNITS/ML VIAL SQ SCH ×4 (09:08→23:45)
[2022-04-07] MEDS: DOCUSATE SODIUM 100 MG CAPSULE PO SCH ×2 (09:08→20:09)
[2022-04-07] MEDS: VALPROIC ACID 250 MG/5 ML SOLUTION UDCUP GT SCH ×3 (09:09→20:08)
[2022-04-07] MEDS: ETHYL ALCOHOL 62% ANTISEPTIC NASAL SANITIZER 0.6 ML AMPUL NASAL SCH ×2 (09:10→20:08)
[2022-04-07 09:12] LABS: BASOPHILS % (AUTO) 0.5 % (0.0-2.0); EOSINOPHILS % (AUTO) 2.4 % (1.0-6.0); HEMATOCRIT 38.6 % (41-53); HEMOGLOBIN 13.5 g/dL (13.5-17.5); LYMPHOCYTES # (AUTO) 0.7 K/uL (1.0-4.8); LYMPHOCYTES % (AUTO) 14.7 % (22.0-44.0); MEAN CORPUSCULAR HEMOGLOBIN 31.4 pg (26.0-34.0); MEAN CORPUSCULAR HGB CONC 34.9 G/dL (31.0-37.0); MEAN CORPUSCULAR VOLUME 90 fL (80-100); MONOCYTES # (AUTO) 0.7 K/uL (0.1-1.0); MONOCYTES % (AUTO) 15.1 % (2.0-9.0); NEUTROPHILS % (AUTO) 67.3 % (40.0-70.0); PLATELET COUNT (AUTO) 168 K/uL (150-450); RED BLOOD CELL COUNT(AUTO) 4.29 MIL/uL (4.50-5.90); RED CELL DISTRIBUTION WIDTH 12.8 % (11.5-14.5)
[2022-04-07 09:56] LABS: ANION GAP 10 mmol/L (8-16); CALCIUM, TOTAL 9.1 mg/dL (8.8-10.5); CARBON DIOXIDE 28 mmol/L (22-29); CHLORIDE 98 mmol/L (98-107); CREATININE 0.74 mg/dL (0.60-1.30); GLUCOSE,RANDOM 159 mg/dL (70-110); POTASSIUM 3.7 mmol/L (3.5-5.1); SODIUM SERUM 136 mmol/L (136-145); UREA NITROGEN, BLOOD 15 mg/dL (7-18)
[2022-04-07 10:00] LABS: GLOMERULAR FILTR. RATE CALC > 60 mL/min (>60)
[2022-04-07 16:12] VITALS: BP 134/75
[2022-04-07] MEDS ORDERED: DiphenhydrAMINE HCL 25 MG CAPSULE PO ONE (17:45)
[2022-04-07 20:09] VITALS: BP 146/79
[2022-04-08 06:27] VITALS: BP 140/96
[2022-04-08 08:03] VITALS: BP 135/91
[2022-04-08] MEDS: VALPROIC ACID 250 MG/5 ML SOLUTION UDCUP GT SCH ×3 (08:59→20:43)
[2022-04-08] MEDS: ETHYL ALCOHOL 62% ANTISEPTIC NASAL SANITIZER 0.6 ML AMPUL NASAL SCH ×2 (08:59→20:43)
[2022-04-08] MEDS: HEPARIN SODIUM,PORCINE 5,000 UNITS/ML VIAL SQ SCH ×3 (08:59→23:20)
[2022-04-08] MEDS: OLANZapine 7.5 MG TABLET GT SCH ×3 (08:59→20:43)
[2022-04-08] MEDS: DOCUSATE SODIUM 100 MG CAPSULE PO SCH ×2 (08:59→20:42)
[2022-04-08 11:24] LABS: BASOPHILS % (AUTO) 0.6 % (0.0-2.0); EOSINOPHILS % (AUTO) 1.8 % (1.0-6.0); HEMATOCRIT 35.8 % (41-53); HEMOGLOBIN 12.3 g/dL (13.5-17.5); LYMPHOCYTES # (AUTO) 0.9 K/uL (1.0-4.8); LYMPHOCYTES % (AUTO) 16.5 % (22.0-44.0); MEAN CORPUSCULAR HEMOGLOBIN 31.3 pg (26.0-34.0); MEAN CORPUSCULAR HGB CONC 34.5 G/dL (31.0-37.0); MEAN CORPUSCULAR VOLUME 91 fL (80-100); MONOCYTES # (AUTO) 0.8 K/uL (0.1-1.0); MONOCYTES % (AUTO) 14.4 % (2.0-9.0); NEUTROPHILS # (AUTO) 3.5 K/uL (1.8-7.7); NEUTROPHILS % (AUTO) 66.7 % (40.0-70.0); PLATELET COUNT (AUTO) 190 K/uL (150-450); RED BLOOD CELL COUNT(AUTO) 3.95 MIL/uL (4.50-5.90); RED CELL DISTRIBUTION WIDTH 12.9 % (11.5-14.5)
[2022-04-08 12:35] LABS: ANION GAP 7 mmol/L (8-16); CALCIUM, TOTAL 8.9 mg/dL (8.8-10.5); CARBON DIOXIDE 29 mmol/L (22-29); CHLORIDE 99 mmol/L (98-107); CREATININE 0.71 mg/dL (0.60-1.30); GLOMERULAR FILTR. RATE CALC > 60 mL/min (>60); GLUCOSE,RANDOM 108 mg/dL (70-110); POTASSIUM 4.1 mmol/L (3.5-5.1); SODIUM SERUM 135 mmol/L (136-145); UREA NITROGEN, BLOOD 10 mg/dL (7-18)
[2022-04-08 16:15] VITALS: BP 139/85
[2022-04-08 19:25] LABS: COVID AG,FIA SOURCE NASOPHARYNGEAL
[2022-04-08 20:10] VITALS: BP 125/61
[2022-04-09 06:00] VITALS: BP 135/69
[2022-04-09 08:09] VITALS: BP 110/59
[2022-04-09] MEDS: HEPARIN SODIUM,PORCINE 5,000 UNITS/ML VIAL SQ SCH ×2 (09:18→16:34)
[2022-04-09] MEDS: OLANZapine 7.5 MG TABLET GT SCH ×2 (10:51→16:34)
[2022-04-09] MEDS: DOCUSATE SODIUM 100 MG CAPSULE PO SCH (10:51)
[2022-04-09] MEDS: VALPROIC ACID 250 MG/5 ML SOLUTION UDCUP GT SCH ×2 (10:51→16:34)
[2022-04-09] MEDS: ETHYL ALCOHOL 62% ANTISEPTIC NASAL SANITIZER 0.6 ML AMPUL NASAL SCH (10:51)
[2022-04-09 15:30] VITALS: BP 120/60
[2022-04-09 16:22] LABS: ANION GAP 5 mmol/L (8-16); CALCIUM, TOTAL 8.7 mg/dL (8.8-10.5); CARBON DIOXIDE 30 mmol/L (22-29); CHLORIDE 99 mmol/L (98-107); GLUCOSE,RANDOM 114 mg/dL (70-110); POTASSIUM 4.2 mmol/L (3.5-5.1); SODIUM SERUM 134 mmol/L (136-145); UREA NITROGEN, BLOOD 14 mg/dL (7-18)
[2022-04-09 16:26] LABS: GLOMERULAR FILTR. RATE CALC > 60 mL/min (>60)
[2022-04-09 16:52] LABS: BASOPHILS % (AUTO) 0.5 % (0.0-2.0); HEMATOCRIT 36.7 % (41-53); HEMOGLOBIN 12.6 g/dL (13.5-17.5); LYMPHOCYTES # (AUTO) 1.5 K/uL (1.0-4.8); LYMPHOCYTES % (AUTO) 20.7 % (22.0-44.0); MEAN CORPUSCULAR HEMOGLOBIN 31.4 pg (26.0-34.0); MEAN CORPUSCULAR HGB CONC 34.2 G/dL (31.0-37.0); MEAN CORPUSCULAR VOLUME 92 fL (80-100); MONOCYTES # (AUTO) 0.7 K/uL (0.1-1.0); MONOCYTES % (AUTO) 9.5 % (2.0-9.0); NEUTROPHILS # (AUTO) 4.9 K/uL (1.8-7.7); NEUTROPHILS % (AUTO) 67.3 % (40.0-70.0); PLATELET COUNT (AUTO) 212 K/uL (150-450); RED CELL DISTRIBUTION WIDTH 13.1 % (11.5-14.5)
[2022-04-09 16:55] LABS: CREATINE KINASE, TOTAL ONLY 73 U/L (39-308)
== END 2022-04-09 18:05 | DRG 207 ==
LOC: EMS 11:09 → ICU 14:16 → 5S 04-05 18:35 → 6S 04-06 23:00
PROVIDERS: ADMIT Internal Medicine; ATTEND Internal Medicine
PROC: 5A1955Z Respiratory Ventilation, Greater than 96 Consecutive Hours (ICD-10-PCS; principal; 2022-03-30)
PROC: 0BH17EZ Insertion of Endotracheal Airway into Trachea, Via Natural or Artificial Opening (ICD-10-PCS; 2022-03-30)
DX: J96.00 Acute respiratory failure, unspecified whether with hypoxia or hypercapnia (principal); G92.8 Other toxic encephalopathy; J69.0 Pneumonitis due to inhalation of food and vomit; E87.1 Hypo-osmolality and hyponatremia; M62.82 Rhabdomyolysis; E87.0 Hyperosmolality and hypernatremia; Z99.11 Dependence on respirator [ventilator] status; E87.6 Hypokalemia; F25.9 Schizoaffective disorder, unspecified; Z20.822 Contact with and (suspected) exposure to COVID-19; D64.9 Anemia, unspecified; D71 Functional disorders of polymorphonuclear neutrophils; E66.01 Morbid (severe) obesity due to excess calories; E78.5 Hyperlipidemia, unspecified; E86.1 Hypovolemia; F99 Mental disorder, not otherwise specified; F15.129 Other stimulant abuse with intoxication, unspecified; J44.9 Chronic obstructive pulmonary disease, unspecified; K21.9 Gastro-esophageal reflux disease without esophagitis; Z91.19 Patient's noncompliance with other medical treatment and regimen; Z68.27 Body mass index [BMI] 27.0-27.9, adult; Z88.0 Allergy status to penicillin; Z88.8 Allergy status to other drugs, medicaments and biological substances
CPT/HCPCS: 36600; 70450; 71045; 71250; 80048; 80164; 81001; 82550; 82570; 82805; 82962; 83735; 83930; 83935; 84132; 84133; 84295; 84300; 85025; 87081; 93005; 94002; 94003; 97162; 97166; 97530; 97535; 99291; C9113; G0378; G0480; J0610; J0696; J1630; J1644; J2060; J2250; J2704; J2765; J3480; J3490; J7030; J7040; J7042; J7050; J7060; J7120; Q9967; 36415-L1; 36415-TC

== ENCOUNTER 2022-04-08 18:25 | Inpatient (IN) | payer MEDICARE, MEDICAID ==
[~2022-04-08] VITALS: Ht 182.9 cm; Wt 82.6 kg
[2022-04-08] MEDS ORDERED: ZOLPIDEM TARTRATE 10 MG TABLET PO PRN (20:30)
[2022-04-08] MEDS ORDERED: GuaiFENesin/D-METHORPHAN [SUGAR-FREE] 200-20MG/10 ML SYRUP UDCUP PO PRN (20:30)
[2022-04-08] MEDS ORDERED: CYANOCOBALAMIN 1,000 MCG/ML VIAL IM ONE (20:30)
[2022-04-08] MEDS ORDERED: LOPERAMIDE HCL 2 MG CAPSULE PO PRN (20:30)
[2022-04-08] MEDS ORDERED: MAGNESIUM HYDROXIDE SUSPENSION 30 ML UDCUP PO PRN (20:30)
[2022-04-08] MEDS ORDERED: MAG HYDROX/AL HYDROX/SIMETH ES 30 ML SUSPENSION UDCUP PO PRN (20:30)
[2022-04-08] MEDS ORDERED: ACETAMINOPHEN 325 MG TABLET PO PRN (20:30)
[2022-04-08] MEDS ORDERED: PROMETHAZINE HCL 25 MG TABLET PO PRN (20:30)
[2022-04-09] MEDS: SERTRALINE HCL 100 MG TABLET PO SCH (09:00)
[2022-04-09] MEDS: FOLIC ACID 1 MG TABLET PO SCH (09:00)
[2022-04-09] MEDS: MULTIVITAMINS WITH MINERALS, THERAPEUTIC TABLET PO SCH (09:00)
[2022-04-09] MEDS: NALTREXONE HCL 50 MG TABLET PO SCH (09:00)
[2022-04-09] MEDS: OMEGA-3/DHA/EPA/FISH OIL 1,000 MG CAPSULE PO SCH (09:00)
[2022-04-09] MEDS: BuPROPion HCL XL 150 MG ER TABLET PO SCH (09:00)
[2022-04-09] MEDS: BusPIRone HCL 15 MG TABLET PO SCH (17:00)
[2022-04-09] MEDS: THIAMINE 100 MG TABLET PO SCH (17:00)
[2022-04-09 19:58] VITALS: BP 137/68
[2022-04-09] MEDS: OLANZapine 10 MG RAPDIS TABLET PO SCH (20:37)
[2022-04-09] MEDS: MELATONIN 5 MG TABLET PO SCH (20:37)
[2022-04-09] MEDS: DIVALPROEX SODIUM 500 MG ER TABLET PO SCH (20:44)
[2022-04-10] MEDS ORDERED: PNEUMOCOCCAL VACCINE POLYVALENT 0.5 ML VIAL [PPSV23] IM. ONE (05:30)
[2022-04-10 08:14] VITALS: BP 111/60
[2022-04-10] MEDS: BusPIRone HCL 15 MG TABLET PO SCH ×2 (10:22→16:43)
[2022-04-10] MEDS: THIAMINE 100 MG TABLET PO SCH ×2 (10:22→16:43)
[2022-04-10] MEDS: OMEGA-3/DHA/EPA/FISH OIL 1,000 MG CAPSULE PO SCH (10:31)
[2022-04-10] MEDS: BuPROPion HCL XL 150 MG ER TABLET PO SCH (10:31)
[2022-04-10] MEDS: SERTRALINE HCL 100 MG TABLET PO SCH (10:31)
[2022-04-10] MEDS: FOLIC ACID 1 MG TABLET PO SCH (10:32)
[2022-04-10] MEDS: NALTREXONE HCL 50 MG TABLET PO SCH (10:32)
[2022-04-10] MEDS: MULTIVITAMINS WITH MINERALS, THERAPEUTIC TABLET PO SCH (10:32)
[2022-04-10] MEDS: NICOTINE POLACRILEX 2 MG LOZENGE PO PRN ×3 (14:38→23:52)
[2022-04-10 16:30] VITALS: BP 130/68
[2022-04-10] MEDS: HydrOXYzine PAMOATE 50 MG CAPSULE PO PRN (16:42)
[2022-04-10] MEDS: DIVALPROEX SODIUM 500 MG ER TABLET PO SCH (21:00)
[2022-04-10] MEDS: OLANZapine 10 MG RAPDIS TABLET PO SCH (21:00)
[2022-04-10] MEDS: MELATONIN 5 MG TABLET PO SCH (21:00)
[2022-04-11] MEDS: NICOTINE POLACRILEX 2 MG LOZENGE PO PRN ×4 (05:06→16:34)
[2022-04-11 08:00] VITALS: BP 150/82
[2022-04-11] MEDS: OMEGA-3/DHA/EPA/FISH OIL 1,000 MG CAPSULE PO SCH (08:25)
[2022-04-11] MEDS: DULoxetine HCL 20 MG CAPSULE PO SCH (08:25)
[2022-04-11] MEDS: MULTIVITAMINS WITH MINERALS, THERAPEUTIC TABLET PO SCH (08:25)
[2022-04-11] MEDS: OLANZapine 5 MG RAPDIS TABLET PO PRN (08:25)
[2022-04-11] MEDS: NALTREXONE HCL 50 MG TABLET PO SCH (08:25)
[2022-04-11] MEDS: BuPROPion HCL XL 150 MG ER TABLET PO SCH (08:25)
[2022-04-11] MEDS: BusPIRone HCL 15 MG TABLET PO SCH ×2 (08:26→16:34)
[2022-04-11] MEDS: LORazepam 1 MG TABLET PO PRN ×2 (08:26→16:34)
[2022-04-11] MEDS: THIAMINE 100 MG TABLET PO SCH ×2 (08:26→16:34)
[2022-04-11] MEDS: FOLIC ACID 1 MG TABLET PO SCH (08:26)
[2022-04-11 16:34] VITALS: BP 115/62
[2022-04-11 16:53] VITALS: BP 115/62
[2022-04-11] MEDS: OLANZapine 10 MG RAPDIS TABLET PO SCH (21:00)
[2022-04-11] MEDS: MELATONIN 5 MG TABLET PO SCH (21:00)
[2022-04-11] MEDS: DIVALPROEX SODIUM 500 MG ER TABLET PO SCH (21:00)
[2022-04-12 08:25] VITALS: BP 132/80
[2022-04-12] MEDS: DULoxetine HCL 20 MG CAPSULE PO SCH (08:40)
[2022-04-12] MEDS: BuPROPion HCL XL 150 MG ER TABLET PO SCH (08:40)
[2022-04-12] MEDS: BusPIRone HCL 15 MG TABLET PO SCH ×2 (08:40→16:38)
[2022-04-12] MEDS: FOLIC ACID 1 MG TABLET PO SCH (08:40)
[2022-04-12] MEDS: THIAMINE 100 MG TABLET PO SCH ×2 (08:40→16:38)
[2022-04-12] MEDS: OMEGA-3/DHA/EPA/FISH OIL 1,000 MG CAPSULE PO SCH (08:40)
[2022-04-12] MEDS: LORazepam 1 MG TABLET PO PRN ×3 (08:40→16:38)
[2022-04-12] MEDS: MULTIVITAMINS WITH MINERALS, THERAPEUTIC TABLET PO SCH (08:40)
[2022-04-12] MEDS: OLANZapine 5 MG RAPDIS TABLET PO PRN ×2 (08:40→13:56)
[2022-04-12] MEDS: NALTREXONE HCL 50 MG TABLET PO SCH (08:41)
[2022-04-12] MEDS: NICOTINE POLACRILEX 2 MG LOZENGE PO PRN ×3 (10:13→18:56)
[2022-04-12 16:12] VITALS: BP 113/70
[2022-04-12 16:38] VITALS: BP 113/70
[2022-04-12] MEDS: MELATONIN 5 MG TABLET PO SCH (20:08)
[2022-04-12] MEDS: DIVALPROEX SODIUM 500 MG ER TABLET PO SCH (20:09)
[2022-04-12] MEDS: OLANZapine 10 MG RAPDIS TABLET PO SCH (20:09)
[2022-04-13] MEDS: NICOTINE POLACRILEX 2 MG LOZENGE PO PRN ×3 (06:47→23:39)
[2022-04-13] MEDS: LORazepam 1 MG TABLET PO PRN ×2 (08:40→14:05)
[2022-04-13] MEDS: FOLIC ACID 1 MG TABLET PO SCH (08:40)
[2022-04-13] MEDS: BusPIRone HCL 15 MG TABLET PO SCH ×2 (08:40→16:27)
[2022-04-13] MEDS: THIAMINE 100 MG TABLET PO SCH ×2 (08:40→16:27)
[2022-04-13] MEDS: MULTIVITAMINS WITH MINERALS, THERAPEUTIC TABLET PO SCH (08:40)
[2022-04-13] MEDS: DULoxetine HCL 20 MG CAPSULE PO SCH (08:40)
[2022-04-13] MEDS: BuPROPion HCL XL 150 MG ER TABLET PO SCH (08:40)
[2022-04-13] MEDS: OMEGA-3/DHA/EPA/FISH OIL 1,000 MG CAPSULE PO SCH (08:40)
[2022-04-13] MEDS: NALTREXONE HCL 50 MG TABLET PO SCH (08:45)
[2022-04-13 09:11] VITALS: BP 122/73
[2022-04-13 16:22] VITALS: BP 110/79
[2022-04-13] MEDS: HydrOXYzine PAMOATE 50 MG CAPSULE PO PRN (16:27)
[2022-04-13] MEDS ORDERED: NALT50TA PO (18:13)
[2022-04-13] MEDS ORDERED: OLAN10TA26 PO (18:13)
[2022-04-13] MEDS ORDERED: OMEG-108 PO (18:13)
[2022-04-13] MEDS ORDERED: DULO20CA71 PO (18:13)
[2022-04-13] MEDS ORDERED: BUPR-49 PO (18:13)
[2022-04-13] MEDS ORDERED: DIVA-80 PO (18:13)
[2022-04-13] MEDS ORDERED: MELA5TAB40 PO (18:13)
[2022-04-13] MEDS ORDERED: BUSP15 PO (18:13)
[2022-04-13] MEDS: DIVALPROEX SODIUM 500 MG ER TABLET PO SCH (20:16)
[2022-04-13] MEDS: OLANZapine 10 MG RAPDIS TABLET PO SCH (20:16)
[2022-04-13] MEDS: MELATONIN 5 MG TABLET PO SCH (20:16)
[2022-04-14] MEDS: OLANZapine 5 MG RAPDIS TABLET PO PRN ×2 (00:12→07:51)
[2022-04-14] MEDS: LORazepam 1 MG TABLET PO PRN ×2 (00:12→07:51)
[2022-04-14] MEDS: NICOTINE POLACRILEX 2 MG LOZENGE PO PRN ×2 (06:41→07:51)
[2022-04-14] MEDS: BusPIRone HCL 15 MG TABLET PO SCH (07:51)
[2022-04-14] MEDS: DULoxetine HCL 20 MG CAPSULE PO SCH (07:51)
[2022-04-14] MEDS: FOLIC ACID 1 MG TABLET PO SCH (07:51)
[2022-04-14] MEDS: BuPROPion HCL XL 150 MG ER TABLET PO SCH (07:51)
[2022-04-14] MEDS: NALTREXONE HCL 50 MG TABLET PO SCH (07:51)
[2022-04-14] MEDS: OMEGA-3/DHA/EPA/FISH OIL 1,000 MG CAPSULE PO SCH (07:51)
[2022-04-14] MEDS: THIAMINE 100 MG TABLET PO SCH (07:51)
[2022-04-14] MEDS: MULTIVITAMINS WITH MINERALS, THERAPEUTIC TABLET PO SCH (07:51)
[2022-04-14 08:19] VITALS: BP 110/66
== END 2022-04-14 13:30 | disposition home or self-care (01) | DRG 885 ==
LOC: 3EC 04-09 18:05
PROVIDERS: ADMIT Psychiatry & Neurology Psychiatry; ATTEND Psychiatry & Neurology Psychiatry
DX: F25.9 Schizoaffective disorder, unspecified (principal); E87.1 Hypo-osmolality and hyponatremia; B35.1 Tinea unguium; D64.9 Anemia, unspecified; G40.409 Other generalized epilepsy and epileptic syndromes, not intractable, without status epilepticus; J44.9 Chronic obstructive pulmonary disease, unspecified; Z55.9 Problems related to education and literacy, unspecified; Z59.9 Problem related to housing and economic circumstances, unspecified; Z63.9 Problem related to primary support group, unspecified; Z65.3 Problems related to other legal circumstances; Z87.891 Personal history of nicotine dependence; Z91.51 Personal history of suicidal behavior; Z88.0 Allergy status to penicillin; Z88.8 Allergy status to other drugs, medicaments and biological substances
CPT/HCPCS: 80164; 87081; Q9967

== ENCOUNTER 2022-07-30 21:59 | Emergency (ER) | payer MEDICARE, OTHER ==
[~2022-07-30] VITALS: Ht 182.9 cm; Wt 80.7 kg
[~2022-07-30 21:59] MED LIST changes: +DULO20CA71 PO; +OLAN10TA26 PO; -OMEG-108 PO; +OMEG-135 PO; -SERT-440 PO
[2022-07-30 23:21] LABS: BASOPHILS % (AUTO) 0.2 % (0.0-2.0); EOSINOPHILS % (AUTO) 0.1 % (1.0-6.0); HEMATOCRIT 45.2 % (41-53); HEMOGLOBIN 15.2 g/dL (13.5-17.5); LYMPHOCYTES # (AUTO) 0.9 K/uL (1.0-4.8); LYMPHOCYTES % (AUTO) 10.8 % (22.0-44.0); MEAN CORPUSCULAR HEMOGLOBIN 30.6 pg (26.0-34.0); MEAN CORPUSCULAR HGB CONC 33.7 G/dL (31.0-37.0); MEAN CORPUSCULAR VOLUME 91 fL (80-100); MONOCYTES # (AUTO) 0.5 K/uL (0.1-1.0); MONOCYTES % (AUTO) 6.4 % (2.0-9.0); NEUTROPHILS # (AUTO) 6.7 K/uL (1.8-7.7); NEUTROPHILS % (AUTO) 82.5 % (40.0-70.0); PLATELET COUNT (AUTO) 227 K/uL (150-450); RED BLOOD CELL COUNT(AUTO) 4.98 MIL/uL (4.50-5.90); RED CELL DISTRIBUTION WIDTH 12.6 % (11.5-14.5)
[2022-07-30 23:32] LABS: ANION GAP 9 mmol/L (8-16); CALCIUM, TOTAL 9.3 mg/dL (8.8-10.5); CARBON DIOXIDE 28 mmol/L (22-29); CHLORIDE 94 mmol/L (98-107); CREATININE 1.03 mg/dL (0.60-1.30); GLUCOSE,RANDOM 114 mg/dL (70-110); POTASSIUM 3.9 mmol/L (3.5-5.1); SODIUM SERUM 131 mmol/L (136-145); UREA NITROGEN, BLOOD 7 mg/dL (7-18)
[2022-07-30 23:34] LABS: GLOMERULAR FILTR. RATE CALC > 60 mL/min (>60)
[2022-07-30 23:47] LABS: ALANINE AMINOTRANSFERASE 22 U/L (12-78); ALKALINE PHOSPHATASE 88 U/L (46-116); ASPARTATE AMINOTRANSFERASE 20 U/L (15-37); BILIRUBIN,TOTAL 0.5 mg/dL (0.1-1.0); THYROID STIMULATING HORMONE 1.51 uIU/mL (0.36-3.74)
[2022-07-31 01:12] LABS: APPEARANCE,URINE CLEAR (CLEAR); BILIRUBIN,URINE NEGATIVE (NEGATIVE); GLUCOSE, URINE (UA) NEGATIVE (NEGATIVE); KETONES,URINE NEGATIVE (NEGATIVE); LEUKOCYTE ESTERASE ,URINE NEGATIVE (NEGATIVE); NITRATE,URINE NEGATIVE (NEGATIVE); OCCULT BLOOD,URINE NEGATIVE (NEGATIVE); PH,URINE 7.5 (5.0-8.0); PROTEIN,URINE NEGATIVE (NEGATIVE); SPECIFIC GRAVITIY, URINE 1.003 (1.003-1.030); UROBILINOGEN,URINE <=1.0 mg/dL (<=1.0)
[2022-07-31 01:16] LABS: LIPASE 133 U/L (73-393)
[2022-07-31 01:25] LABS: COVID AG,FIA SOURCE NASOPHARYNGEAL
[2022-07-31 01:29] LABS: AMPHET/METH SCREEN,URINE POSITIVE (NEGATIVE); BARBITURATE SCREEN, URINE NEGATIVE (NEGATIVE); BENZODIAZEPINES SCREEN,URINE POSITIVE (NEGATIVE); CANNABINOID SCREEN,URINE NEGATIVE (NEGATIVE); COCAINE SCREEN,URINE NEGATIVE (NEGATIVE); METHADONE SCREEN, URINE NEGATIVE (NEGATIVE); OPIATE SCREEN,URINE NEGATIVE (NEGATIVE)
[2022-07-31 01:39] LABS: PHENCYCLIDINE SCREEN,URINE NEGATIVE (NEGATIVE)
[2022-07-31] MEDS ORDERED: BISMUTH SUBSALICYLATE 525 MG/30 ML SUSPENSION UDCUP PO ONE (02:00)
[2022-07-31 03:02] VITALS: BP 147/82
== END 2022-07-31 03:19 | disposition home or self-care (01) ==
LOC: EMS 21:59
DX: F19.159 Other psychoactive substance abuse with psychoactive substance-induced psychotic disorder, unspecified (principal); F20.9 Schizophrenia, unspecified; Z20.822 Contact with and (suspected) exposure to COVID-19; Z88.0 Allergy status to penicillin
CPT/HCPCS: 99283; 87426; 80053; 83690; 84443; 85025; 36415; 80307; 81003; G0480